=== PATIENT | male | born 1955 ===

== ENCOUNTER 2024-09-08 07:36 | Outpatient (AMB) | payer MEDICARE, MEDICAID, OTHER, SELFPAY ==
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
[2024-09-08 08:08] VITALS: BP 110/72; PULSE 70; TEMP 36.2; O2SAT 97; BMI 26.9
== END 2024-09-08 09:01 | disposition home or self-care (01) ==
DX: I10 Essential (primary) hypertension (principal); E78.00 Pure hypercholesterolemia, unspecified; M50.30 Other cervical disc degeneration, unspecified cervical region; K21.9 Gastro-esophageal reflux disease without esophagitis; I49.9 Cardiac arrhythmia, unspecified; R10.9 Unspecified abdominal pain; R51.9 Headache, unspecified; K59.00 Constipation, unspecified

== ENCOUNTER → 2024-09-08 07:36 | Outpatient (BNVA) | payer MEDICARE, MEDICAID, OTHER, SELFPAY | DX: I10 Essential (primary) hypertension (principal); E78.00 Pure hypercholesterolemia, unspecified; M50.30 Other cervical disc degeneration, unspecified cervical region; K21.9 Gastro-esophageal reflux disease without esophagitis; I49.9 Cardiac arrhythmia, unspecified; R10.9 Unspecified abdominal pain; R51.9 Headache, unspecified; K59.00 Constipation, unspecified | CPT/HCPCS: 99202 ==

== ENCOUNTER 2024-10-12 07:47 | Outpatient (REF) | payer OTHER, SELFPAY ==
--- NOTE | ~2024-10-12 | US_ITS ---
CLINICAL HISTORY: R10.9 - Unspecified abdominal pain US abdomen complete Comparison: None Findings: Pancreas is not well seen secondary to bowel gas. The aorta and inferior vena cava are normal caliber. The liver is normal in size and echotexture. There is no intrahepatic bile duct dilatation. The common duct is to mm in diameter. The gallbladder is normal. There is no sonographic Coronel sign. The right kidney is 10.8 cm in length. The left kidney is 14.0 cm in length. Renal pelvis are prominent bilaterally. The spleen is normal. No ascites. No abnormality seen in the region of umbilical hernia repair. IMPRESSION: 1. Normal complete abdominal ultrasound. This document has been electronically signed by: Zuleima Vigil MD on 10/13/2024 14:38:48
--- NOTE | 2024-10-12 08:40 | HM_ITS ---
Conclusion: 1. Patient was monitored for total period of 5 days 2. Frequent atrial fibrillation noted with 85% of time patient in atrial fibrillation with fastest heart rate of 188 beats per minute 3. At other times patient in normal sinus rhythm with average heart of 75 beats per minute 4. Rare PACs and PVCs noted 5. No significant pauses noted 6. No patient reported events MTDD
== END 2024-10-12 07:48 | disposition home or self-care (01) ==
LOC: HO.US 07:47
PROVIDERS: PCP Internal Medicine
DX: Z13.89 Encounter for screening for other disorder (principal)
CPT/HCPCS: 76700; 93242

== ENCOUNTER → 2024-10-12 07:49 | Outpatient (BNV) | payer OTHER, SELFPAY | PROVIDERS: PCP Internal Medicine; Visit Provider Radiology Diagnostic Radiology | DX: R10.9 Unspecified abdominal pain (principal) | CPT/HCPCS: 76700 ==

== ENCOUNTER → 2024-10-12 08:40 | Outpatient (BNV) | payer OTHER, SELFPAY | PROVIDERS: PCP Internal Medicine; Visit Provider Internal Medicine Cardiovascular Disease | DX: I48.91 Unspecified atrial fibrillation (principal) | CPT/HCPCS: 93244 ==

== ENCOUNTER 2024-10-12 08:56 | Outpatient (REF) | payer OTHER, SELFPAY ==
[2024-10-12 09:11] LABS: MANUAL DIFF FLAG NO
[2024-10-12 10:06] LABS: Basophils Percent Auto 0.7 % (0-2); Eosinophils Absolute Auto 0.3 X10*3/uL (0.0-0.4); Eosinophils Percent Auto 7.5 % (0-4); Hematocrit 40.2 % (42.0-52.0); Hemoglobin 13.6 g/dl (14.0-18.0); Imm Gran Abs Auto 0.01 X10*3/uL (0.00-0.03); Imm Gran Pct Auto 0.2 % (0.0-0.4); Lymphocytes Absolute Auto 1.5 X10*3/uL (1.2-4.9); Lymphocytes Percent Auto 33.1 % (20-40); Mean Corpuscular HGB Conc 33.8 g/dl (31.0-36.0); Mean Corpuscular Hemoglobin 30.3 pg (27.0-33.0); Mean Corpuscular Volume 89.5 fL (80.0-98.0); Mean Platelet Volume 10.4 fL (9.4-12.4); Monocytes Absolute Auto 0.4 X10*3/uL (0.1-1.2); Monocytes Percent Auto 9.8 % (2-11); Neutrophils Absolute Auto 2.2 x10*3/uL (2.0-8.3); Neutrophils Percent Auto 48.7 % (45-73); Platelet Count 160 X10*3/uL (160-400); Red Blood Count 4.49 X10*6/uL (4.60-5.80); Red Cell Distribution Width 13.1 % (11.0-16.0); White Blood Count 4.4 X10*3/uL (4.8-10.8)
[2024-10-12 10:09] LABS: Estimated Average Glucose 105 mg/dL; Hemoglobin A1C 124.8694 umol/L; Hemoglobin A1c % 5.3 % (<6.0); Total Hemoglobin (HGBA1C) 3632.8069 umol/L
[2024-10-12 10:35] LABS: Appearance Urine Clear; Color Urine Yellow; Glucose Urine UA Negative (Negative); Leukocyte Esterase Urine Negative (Negative); Nitrite Urine Negative (Negative); PH 7.5 (5.0-9.0); Urine Blood Negative (Negative); Urine Ketones Negative (Negative); Urine Protein Negative (Neg-Trace)
[2024-10-12 10:42] LABS: Alanine Aminotransferase 24 U/L (0-40); Albumin Level 4.1 g/dL (3.5-5.0); Alkaline Phosphatase 58 U/L (39-117); Anion Gap 9 (12-20); Aspartate Amino Transferase 23 U/L (5-37); Bilirubin Total 0.5 mg/dL (0.0-1.0); Blood Urea Nitrogen 15 mg/dL (9-16); Calcium 8.9 mg/dL (8.4-10.2); Carbon Dioxide 28 mmol/L (22-29); Chloride 110 mmol/L (96-108); Cholesterol 113 mg/dL (<200); Estimated Glomerular Filt Rate > 60; Glucose Random 101 mg/dL (60-115); HDL Cholesterol 39 mg/dL (>40); LDL Cholesterol Calculated 64 mg/dL (<100); Potassium 4.3 mmol/L (3.3-5.1); Sodium 143 mmol/L (135-145); Total Protein 6.7 g/dL (6.5-8.0); Triglycerides 50 mg/dL (<150)
[2024-10-12 10:58] LABS: TSH reflex Free T4 0.58 uIU/mL (0.32-4.0); Vitamin D 25-OH Total 39.8 ng/mL (>30)
[2024-10-12 11:04] LABS: Folate 15.2 ng/mL (> or = 4.0); Vitamin B12 764 pg/mL (200-900)
[2024-10-18 22:08] LABS: PSA, Ultra Sensitive 0.56 ng/mL
== END 2024-10-12 08:57 | disposition home or self-care (01) ==
LOC: HO.LAB 08:56
PROVIDERS: PCP Internal Medicine
DX: Z00.00 Encounter for general adult medical examination without abnormal findings (principal); E78.00 Pure hypercholesterolemia, unspecified; Z12.5 Encounter for screening for malignant neoplasm of prostate; R10.819 Abdominal tenderness, unspecified site; R00.2 Palpitations; I49.9 Cardiac arrhythmia, unspecified; Z13.1 Encounter for screening for diabetes mellitus; R10.9 Unspecified abdominal pain
CPT/HCPCS: 36415; 76700; 80053; 80061; 81003; 82306; 82607; 82746; 83036; 84153; 84443; 85025; 93242

== ENCOUNTER 2024-10-30 07:26 | Outpatient (REF) | payer OTHER, SELFPAY ==
[2024-10-30 08:06] LABS: D Dimer High Sensitivity < 150 NG/ML
== END 2024-10-30 07:27 | disposition home or self-care (01) ==
LOC: HO.LAB 07:26
PROVIDERS: PCP Internal Medicine
DX: I48.0 Paroxysmal atrial fibrillation (principal)
CPT/HCPCS: 36415; 85379

== ENCOUNTER → 2024-11-08 07:56 | Outpatient (REF) | payer OTHER, SELFPAY ==
--- NOTE | 2024-11-08 07:58 | CA_ITS ---
Transthoracic Echocardiogram Patient (Last, First, Middle): Donnell Lynne, Gender: Male Date of : 1955 Age: 68 Procedure Date: 11/08/2024 Procedure Type: Transthoracic Echocardiogram Location: OP Height: 167.64 cm Weight: 76.66 kg BSA: 1.86 m2 Heart Rate: bpm BP: 110 / 72 mmHg Deputy Sheriff Building Guard: EAMON Referring MD: Rachel Davidson PA-C Marine Services Technician: Harry Garcia MD Symptoms: I48.0 - Paroxysmal atrial fibrillation Study Quality: Adequate ECG Rhythm: Atrial Fibrillation Conclusions: - 1. Normal LV ejection fraction 55-60% 2. Normal cardiac valvular Dopplers 3. Normal RV systolic pressure 4. Mildly dilated ascending aorta 3.7 cm 5. No gross pericardial effusion Findings Left Ventricle Normal left ventricular size, thickness, and systolic function. The visually estimated ejection fraction is between 55-60%. Diastolic function is indeterminate on the basis of available data. Normal left ventricular filling pressures. Right Ventricle Normal right ventricular cavity size and systolic function. Atria The left atrium is likely dilated. Interatrial shunt cannot be excluded. The right atrium is normal in size. Aortic Valve The aortic valve was not well visualized. There is no aortic valve stenosis. There is no aortic valve regurgitation. Mitral Valve Likely normal mitral valve structure and function. There is trace mitral valve regurgitation. There is no mitral valve stenosis. Pulmonic Valve The pulmonic valve was not well visualized. Tricuspid Valve The tricuspid valve was not well visualized. There is trace tricuspid valve regurgitation. The right ventricular systolic pressure is normal. The right ventricular systolic pressure is 14 mmHg. Normal right atrial pressure. There is no evidence of pulmonary hypertension. Great Vessels All visible segments of the aorta are normal in size. The pulmonary artery was not well visualized. There is mild dilatation of the ascending aorta measuring 3.70 cm. Venous The inferior vena cava is normal in size and collapses greater than 50% with inspiration. Pericardium/Pleural There is no evidence of pericardial effusion. Prior Study Comparison No prior study available for comparison. Measurements 2D Linear Measurements IVSd: 1.08 0.6-0.9/0.6-1.0 cm LVIDd: 4.48 3.9-5.3/4.2-5.9 cm LVIDd Index: 2.41 2.4-3.2/2.2-3.1 cm/m2 LVIDs: 3.25 2.0-3.6 cm LVPWd: 1.06 0.7-1.1 cm LA Diam: 3.20 2.7-3.8/3.0-4.0 cm LAIDs Index: 1.72 1.5-2.3 cm/m2 LV Mass: 208.21 67-162/88-224 g LV Mass Index: 111.94 43-95/49-115 g/m2 LVOT Diam: 2.00 3.0+(-)1.3 cm 2D Systolic Function EF 4C: 59.40 >55% EF 2C: 54.20 >55% EF BiP: 55.90 >55% Mitral Valve MV Pk E: 0.71 MV Decel Time: 202.00 E'Lateral: 11.30 E'Medial: 7.31 E/E' Med: 9.60 E/E' Lat: 6.20 PHT: 59.00 MVA PHT: 3.73 Decel Pratt: 3.76 Aortic Valve AoV Pk Gilbert: 1.09 AoV Mn Gilbert: 0.76 AoV VTI: 0.20 AoV Pk Grad: 5.00 Aov Mn Grad: 3.00 MARIELA Cont.VTI: 2.43 LVOT LVOT Pk Gilbert: 0.82 LVOT Mn Gilbert: 0.54 LVOT VTI: 0.16 LVOT Pk Grad: 3.00 LVOT Mn Grad: 1.00 LVOT Diam: 2.00 LVOT Area: 3.14 Diastolic Function MV Pk E: 0.71 E'Medial: 7.31 E/E' Med: 9.60 E' Laterial: 11.30 E/E' Lat: 6.20 Right Ventricle TAPSE (mm): 20.80 TVS' Gilbert: 11.40 Tricuspid Valve TR Pk Gilbert: 1.69 TR Pk Grad: 11.00 RA Press: 3.00 RVSP: 14.00 Great Vessels Aorta Sinus of Valsalva: 3.63 2.0-3.[address] Ridge: 3.00 1.7-3.4 cm Ao Asc: 3.70 2.1-3.4 cm Updated in Other Vendor System with Status of Final Harry Garcia MD electronically signed on 11/08/2024 1:16:32 PM with status of Final
== END ==
LOC: HO.CARD 07:56
PROVIDERS: PCP Internal Medicine
DX: I48.0 Paroxysmal atrial fibrillation (principal)
CPT/HCPCS: 93306

== ENCOUNTER → 2024-11-08 07:58 | Outpatient (BNV) | payer OTHER, SELFPAY | PROVIDERS: PCP Internal Medicine; Visit Provider Internal Medicine Cardiovascular Disease | DX: I48.0 Paroxysmal atrial fibrillation (principal); I77.810 Thoracic aortic ectasia | CPT/HCPCS: 93306 ==

== ENCOUNTER 2024-11-15 11:58 | Outpatient (AMB) | payer OTHER, SELFPAY ==
[2024-11-15 12:26] VITALS: BP 110/60; PULSE 82; BMI 26.0
--- NOTE | 2024-11-15 12:26 | A.OFFVIS_ITS ---
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 Apparently has been told have an irregular heart rhythm in the past but not documented to have any atrial fibrillation. Recently underwent Holter that does show a high burden of atrial fibrillation. Patient himself does not have any known cardiac issues including coronary disease myocardial infarction or cardiomyopathy or in fact anything else along those lines. He states he otherwise feels fine. Does not have any symptoms like palpitations, chest pains, shortness of breath extra. He states he feels well. He is on atenolol which has apparently been long-term medications. After the recent diagnosis of atrial fibrillation, Eliquis has been added. [facility] Medical History (Updated 11/09/24 @ 08:44 by Rachel Davidson PA-C) Lipoma Surgical History History of carpal tunnel surgery History of hand surgery History of hernia surgery Family History (Updated 11/15/24 @ 12:37 by Neda Zavaleta) Mother Heart problem Father No problems noted. Other Substance use disorder Social History (Updated 11/15/24 @ 12:37 by Neda Zavaleta) Housing: Apartment Alcohol intake: never Patient Tobacco Use Status: Former Tobacco user e-Cigarette/Vaping Use: Never Used Second Hand Smoke Exposure: No service: No Current occupational status: retired Cognitive needs: Yes (cane) Hearing needs: No Vision needs: Yes (Glasses) Review of Systems Const Denies weakness ENT Denies dizziness Card Denies chest pain, Denies chest pain with activity, Denies syncope, Denies rapid heart rate, Denies pedal edema, Denies edema, Denies leg edema, Denies lightheadedness, Denies palpitations, Denies dyspnea, Denies dyspnea on exertion and Denies orthopnea Resp Denies cough, Denies dyspnea and Denies dyspnea on exertion GI Denies hematochezia and Denies change in stool character Musc Denies abnormal gait, Denies muscle cramps, Denies muscle weakness, Denies numbness, Denies radiating pain into limb and Denies tingling Neuro Denies abnormal gait, Denies dizziness, Denies syncope, Denies numbness, Denies tingling and Denies weakness Endo Denies palpitations Physical Exam Vital Signs: Last Vital Signs Pulse 82 11/15/24 12:26 BP 110/60 11/15/24 12:26 BMI result Body Mass Index 26.0 Const General: comfortable and no acute distress Orientation/consciousness: patient oriented x3 HEENT Other: Unremarkable Head: Yes normal to inspection Neck Neck: Yes normal visual inspection Chest Chest palpation & inspection: normal inspection of the chest Resp Auscultation: clear to auscultation bilaterally Cardio Palpation: normal PMI Heart sounds: S1 normal heart sound present, S2 normal heart sound present, no gallops, no murmurs and no rubs GI Palpation (GI): Soft to palpation Back/Spine/Pelvis Other: unremarkable Skin General skin exam: no rashes or lesions noted Neuro General: patient oriented x3 Extrem General: Yes normal to inspection Psych Mental Status: mental status grossly normal Office Procedures EKG Details: EKG with atrial fibrillation at a rate of 82/Min. [id number], Complete Assessment & Plan Assessment & Plan (1) Paroxysmal A-fib: Code(s): I48.0 - Paroxysmal atrial fibrillation Category: Medical Plan Cardiac studies reviewed. In the echocardiogram, LVEF is 55-60%. Left atrium thought to be probably dilated. No significant valvular findings. In the Holter monitor, atrial fibrillation noted about 85% of the time. There is evidence of rapid ventricular response -about 6.6% of the time, rate > 100/Min. Overall, possible history of paroxysmal atrial fibrillation which could be more persistent based on the high burden. Clinically, no overt symptoms. He is already on atenolol. Add digoxin. Check levels in a few weeks' time. Continue anticoagulation. We will recheck Holter in about 2-3 months after having had digoxin for a few weeks. Orders: Orders Digoxin 4 Weeks Henry Friedman MD I48.0 - Paroxysmal atrial fibrillation ECG 3 day holter monitor Today Henry Friedman MD I48.0 - Paroxysmal atrial fibrillation Medications: New digoxin 125 mcg PO DAILY 90 tabs 1RF Henry Friedman MD Changed From docusate sodium (Colace) 100 mg PO DAILY 30 caps 2RF To docusate sodium (Colace) 100 mg PO DAILY PRN Rachel Davidson PA-C Coding Level of Care Code New Pt Level 4 (05841) Complex EM visit Add On G2211 Diagnoses Paroxysmal A-fib I48.0 CPT Codes EKG - CPT: 33511-[id number], Complete ([id number])
== END 2024-11-15 13:08 | disposition home or self-care (01) ==
LOC: HO.HCS 11:59
PROVIDERS: PCP Internal Medicine; Visit Provider Internal Medicine
DX: I48.0 Paroxysmal atrial fibrillation (principal)
CPT/HCPCS: 93010; 99204; G2211

== ENCOUNTER → 2024-11-15 11:58 | Outpatient (BNVA) | payer OTHER, SELFPAY | PROVIDERS: PCP Internal Medicine; Visit Provider Internal Medicine | DX: I48.0 Paroxysmal atrial fibrillation (principal); R94.31 Abnormal electrocardiogram [ECG] [EKG] | CPT/HCPCS: 93005; 99202 ==

== ENCOUNTER → 2024-11-20 09:16 | Outpatient (REF) | payer OTHER, SELFPAY | LOC: HO.CARD 09:16 | PROVIDERS: Visit Provider Internal Medicine | DX: I48.0 Paroxysmal atrial fibrillation (principal) | CPT/HCPCS: 93242 ==

== ENCOUNTER → 2024-11-20 09:19 | Outpatient (BNV) | payer OTHER, SELFPAY | PROVIDERS: Visit Provider Internal Medicine | DX: I48.91 Unspecified atrial fibrillation (principal) | CPT/HCPCS: 93244 ==

== ENCOUNTER 2024-11-24 08:29 | Outpatient (REF) | payer OTHER, SELFPAY ==
--- NOTE | ~2024-11-24 | FL_ITS ---
EXAMINATION: XR FLUOROSCOPY UPPER GI WITH AIR CLINICAL INFORMATION: Reflux COMPARISON: None TECHNIQUE: Fluoroscopic air contrast upper GI examination was performed utilizing standard techniques with thin and thick barium and effervescent granules. Numerous spot images were obtained. FINDINGS: Lateral cine images of the oropharynx and hypopharynx demonstrate normal swallow mechanism with normal epiglottic inversion and soft palate elevation. No tracheal penetration, glottic or subglottic aspiration identified. No nasopharyngeal reflux present. A Niall-Victoriano diverticulum is present. Mild cricopharyngeal achalasia is present. Dual and single contrast images of the esophagus demonstrate a normal caliber and contour. There is a granular appearance of the esophageal mucosa, suggestive of esophagitis. No evidence of stricture, mass, or ulcerations identified. Esophageal peristalsis is mildly disorganized. A small type I hiatal hernia is present. Gastroesophageal reflux is seen up to the aortic arch. Dual contrast and single contrast images of the stomach demonstrated a normal contour. The gastric rugal folds have a thickened appearance, suggestive gastritis. No masses or ulcerations are seen. Contrast freely passed into the gastric antrum and duodenal bulb without delay. Single and air-contrast images of the duodenal bulb demonstrate no abnormality. The duodenal sweep has a normal appearance, course, and mucosal fold appearance. The imaged proximal jejunum has a normal fold pattern and caliber. FLUOROSCOPY TIME: 3 minutes 1 second Number of Spot Images: 10 Number of Cine: 13 DOSE AREA PRODUCT: 2099 uGy-m2 (microgray-meter squared) FL/FL upper GI w air IMPRESSION: 1. Lateral upper cervical esophageal diverticulum ([place]-Victoriano diverticulum). 2. Mild cricopharyngeal achalasia. 3. Granular appearance of the esophageal mucosa, suggestive of esophagitis. 4. Mild esophageal dysmotility. 5. Small type I hiatal hernia with moderate gastric esophageal reflux. 6. Thickened appearance of the gastric rugal folds, suggestive of gastritis. This procedure was performed by Richy Spangler PA-C, and supervised by Dr. Islas Electronically signed by: Todd Islas MD 11/24/2024 03:41 PM EDT
== END 2024-11-24 08:30 | disposition home or self-care (01) ==
LOC: HO.XRAY 08:29
PROVIDERS: PCP Internal Medicine
DX: K21.9 Gastro-esophageal reflux disease without esophagitis (principal)
CPT/HCPCS: 74246

== ENCOUNTER → 2024-11-24 08:31 | Outpatient (BNV) | payer OTHER, SELFPAY | PROVIDERS: PCP Internal Medicine; Visit Provider Physician Assistant Surgical | DX: K21.9 Gastro-esophageal reflux disease without esophagitis (principal) | CPT/HCPCS: 74246 ==

== ENCOUNTER 2024-12-07 13:59 | Outpatient (AMB) | payer MEDICARE, MEDICAID, SELFPAY ==
[2024-12-07 14:46] VITALS: BP 130/60; PULSE 50; TEMP 36.3; O2SAT 97; BMI 27.6
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
== END 2024-12-07 15:18 | disposition home or self-care (01) ==
LOC: HO.HMCH 13:59
DX: K22.4 Dyskinesia of esophagus (principal); I48.0 Paroxysmal atrial fibrillation; I10 Essential (primary) hypertension; E78.00 Pure hypercholesterolemia, unspecified; K21.9 Gastro-esophageal reflux disease without esophagitis; M50.30 Other cervical disc degeneration, unspecified cervical region

== ENCOUNTER → 2024-12-07 13:59 | Outpatient (BNVA) | payer OTHER, SELFPAY | DX: K22.4 Dyskinesia of esophagus (principal); I48.0 Paroxysmal atrial fibrillation; I10 Essential (primary) hypertension; E78.00 Pure hypercholesterolemia, unspecified; K21.9 Gastro-esophageal reflux disease without esophagitis; Z79.01 Long term (current) use of anticoagulants; Z79.899 Other long term (current) drug therapy | CPT/HCPCS: 99212 ==

== ENCOUNTER 2024-12-29 06:53 | Outpatient (REF) | payer MEDICARE, SELFPAY ==
--- OUTSIDE RECORDS SUMMARY | 2024-12-29 06:55 | XMS_ITS ---
Author Organization [facility] Billing Info Address [address] [place] [id number] Care Team Providers Care Top Collar Baster Name Role Phone Neil Rudolph Primary Care Provider KEIRA Karimi Unavailable [phone] Allergies No Known Allergies REASON FOR VISIT S/P EGD/SCREENING COLONOSCOPY DOS 03/21/2024 Social History Tobacco Use: Social History Observation Description Date Details (start date - stop date) Former Smoker NA - NA Tobacco Status: Question Answer Notes Patient is a former smoker Problems Problem Type SNOMED Code ICD Code Onset Dates Problem Status W/U Status Risk Notes Problem 270652524 Gastroesophageal reflux disease with esophagitis without hemorrhage (K21.00) Active confirmed Problem 241189841 Irregular Z line of esophagus (K22.9) Active confirmed Problem 80441202 Hiatal hernia (K44.9) Active confirmed Problem 05936308 Benign fundic gl and polyps of stomach (D13.1) Active confirmed Problem 0198438 Antral gastritis (K29.50) Active confirmed Problem 79050978 Duodenitis (K29.80) Active confirmed Problem 962506906 Hyperplastic rajan yp of cecum (K63.5) Active confirmed Problem 5349499171 Lipoma of colon (D17.5) Active confirmed Problem 3675139702124 Adenomatous rect al polyp (D12.8) Active confirmed Problem 318420048 Colon, diverticulosis (K57.30) Active confirmed Problem 33505454 Gastric intestin al metaplasia (K31.A0) Active confirmed Vital Signs Height 68 in 04/05/2024 Weight 169 lbs 04/05/2024 BMI 25.69 kg/m2 04/05/2024 Blood pressure systolic 134 mm Hg 04/05/20 24 Blood pressure diastolic 74 mm Hg 024 Temperature 98.0 degrees Fahrenheit 04/05/20 24 Heart Rate 75 /min 04/05/2024 Respiratory Rate 16 /min 04/05/2024 Encounters Encounter Location Date Provider Diagnosis [id number] [facility] [address] [place] [address] 04/05/2024 KEIRA NOLAND Gastroesophageal reflux disease with esophagitis without hemorrhage K21.00 ; Irregular Z line of esophagus K22.9 ; Hiatal hernia K44.9 ; Benign fundic gland polyps of stomach D13.1 ; Antral gastritis K29.50 ; Duodenitis K29.80 ; Hyperplastic polyp of cecum K63.5 ; Lipoma of colon D17.5 ; Adenomatous rectal polyp D12.8 ; Colon, diverticulosis K57.30 ; Gastric intestinal metaplasia K31.A0 ; Dietary counseling and surveillance Z71.3 and Overweight (BMI 25.0-29.9) E66.3 Assessments Encounter Date Diagnosis (ICD Code) Assessment Notes Treatment Notes Treatment Clinical Notes Section Notes 04/05/2024 Gastroesophageal reflux disease with esophagitis without hemorrhage (ICD-10 - K21.00) Reflux esophagitis Irregular Z-line Hiatal hernia 35/38 cm Gastric fundic polyps Antral gastritis Duodenitis Cecal hyperplastic polyp Cecal lipoma, subcentimeter Colonic diverticulosi s Rectal tubular adenomatous polyp 04/05/2024 Irregular Z line of esophagus (ICD-10 - K22.9) Reflux esophagitis Irregular Z-line Hiatal hernia 35/38 cm Gastric fundic polyps Antral gastritis Duodenitis Cecal hyperplastic polyp Cecal lipoma, subcentimeter Colonic diverticulosi s Rectal tubular adenomatous polyp 04/05/2024 Hiatal hernia (ICD-10 - K44.9) Reflux esophagitis Irregular Z-line Hiatal hernia 35/38 cm Gastric fundic polyps Antral gastritis Duodenitis Cecal hyperplastic polyp Cecal lipoma, subcentimeter Colonic diverticulosi s Rectal tubular adenomatous polyp 04/05/2024 Benign fundic gland polyps of stomach (ICD-10 - D13.1) Reflux esophagitis Irregular Z-line Hiatal hernia 35/38 cm Gastric fundic polyps Antral gastritis Duodenitis Cecal hyperplastic polyp Cecal lipoma, subcentimeter Colonic diverticulosi s Rectal tubular adenomatous polyp 04/05/2024 Antral gastritis (ICD-10 - K29.50) Reflux esophagitis Irregular Z-line Hiatal hernia 35/38 cm Gastric fundic polyps Antral gastritis Duodenitis Cecal hyperplastic polyp Cecal lipoma, subcentimeter Colonic diverticulosi s Rectal tubular adenomatous polyp 04/05/2024 Duodenitis (ICD-10 - K29.80) Reflux esophagitis Irregular Z-line Hiatal hernia 35/38 cm Gastric fundic polyps Antral gastritis Duodenitis Cecal hyperplastic polyp Cecal lipoma, subcentimeter Colonic diverticulosi s Rectal tubular adenomatous polyp 04/05/2024 Hyperplastic polyp of cecum (ICD-10 - K63.5) Reflux esophagitis Irregular Z-line Hiatal hernia 35/38 cm Gastric fundic polyps Antral gastritis Duodenitis Cecal hyperplastic polyp Cecal lipoma, subcentimeter Colonic diverticulosi s Rectal tubular adenomatous polyp 04/05/2024 Lipoma of colon (ICD-10 - D17.5) Reflux esophagitis Irregular Z-line Hiatal hernia 35/38 cm Gastric fundic polyps Antral gastritis Duodenitis Cecal hyperplastic polyp Cecal lipoma, subcentimeter Colonic diverticulosi s Rectal tubular adenomatous polyp 04/05/2024 Adenomatous rectal polyp (ICD-10 - D12.8) Colonoscopy in 3 years Reflux esophagitis Irregular Z-line Hiatal hernia 35/38 cm Gastric fundic polyps Antral gastritis Duodenitis Cecal hyperplastic polyp Cecal lipoma, subcentimeter Colonic diverticulosi s Rectal tubular adenomatous polyp 04/05/2024 Colon, diverticulosis (ICD-10 - K57.30) Reflux esophagitis Irregular Z-line Hiatal hernia 35/38 cm Gastric fundic polyps Antral gastritis Duodenitis Cecal hyperplastic polyp Cecal lipoma, subcentimeter Colonic diverticulosi s Rectal tubular adenomatous polyp 04/05/2024 Gastric intestinal metaplasia (ICD-10 - K31.A0) EGD in 3 years Reflux esophagitis Irregular Z-line Hiatal hernia 35/38 cm Gastric fundic polyps Antral gastritis Duodenitis Cecal hyperplastic polyp Cecal lipoma, subcentimeter Colonic diverticulosi s Rectal tubular adenomatous polyp 04/05/2024 Dietary counseling and surveillance (ICD-10 - Z71.3) Encouraged balance nutrition and regular exercise. Reflux esophagitis Irregular Z-line Hiatal hernia 35/38 cm Gastric fundic polyps Antral gastritis Duodenitis Cecal hyperplastic polyp Cecal lipoma, subcentimeter Colonic diverticulosi s Rectal tubular adenomatous polyp 04/05/2024 Overweight (BMI 25.0-29.9) (ICD-10 - E66.3) Encouraged balance nutrition and regular exercise. Reflux esophagitis Irregular Z-line Hiatal hernia 35/38 cm Gastric fundic polyps Antral gastritis Duodenitis Cecal hyperplastic polyp Cecal lipoma, subcentimeter Colonic diverticulosi s Rectal tubular adenomatous polyp 04/05/2024 Other Preventing Falls: Care Instructions material was published, Body Mass Index: Care Instructions material was published, Learning About High Blood Pressure material was published All of the diagnoses were explained. All of the treatment options were discussed. Adverse effects were disclosed. Opportunity was given to ask questions and questions were answered. I advised to call my office if symptoms do not get better, if symptoms recur, or if new symptoms occur. Patient was advised and educated to follow the recommendations made. Adherence and compliance is urged. Failure to comply may result in untoward outcomes. If patient has some issues, problems and difficulties which may potentially lead to noncompliance, patient was advised to contact this office by phone or e-mail. Patient understood and agreed. For all nongastroenterologica l symptoms/problems patient was advised to consult and seek help from primary care physician to assure more comprehensive and organized approach to patient care Reflux esophagitis Irregular Z-line Hiatal hernia 35/38 cm Gastric fundic polyps Antral gastritis Duodenitis Cecal hyperplastic polyp Cecal lipoma, subcentimeter Colonic diverticulosi s Rectal tubular adenomatous polyp Plan Of Treatment Treatment Notes Assessment Notes Adenomatous rectal polyp Colonoscopy in 3 years Gastric intestinal metaplasia EGD in 3 y ears Dietary counseling and surveillance Enco uraged balance nutrition and regular exercise. Overweight (BMI 25.0-29.9) Encouraged ba karolyn nutrition and regular exercise. Other Preventing Falls: Ca re Instructions material was published, Body Mass Index: Care Instructions material was published, Learning About High Blood Pressure material was published Next Appt Details Follow Up: prn, Reason: Progress Notes * Gita BONILLAOB:1955 ([age] yo M)Acc No.[id number]:04/05/2024 PROGRESS NOTE Patient:?Donnell BONILLA Provider:?KEIRA NOLAND MD :1955???Age:68 Y???Sex:Male Elan e:04/05/2024 ?[facility]#:[id number] [id number] Pcp:Neil Rudolph Subjective: * Chief Complaints: * ???S/P EGD/SCREENING COLONOS COPY DOS 03/21/2024 * HPI: ???Depression Screening:?PHQ-2 (2015 Edition)?Little interest or pleasure in doing things??Not at all,?Feeling down, depressed, or hopeless??Not at all,?Total Score?0.?First Point of Contact Screening:?Do any of the following apply to you??New rash or open sores?No,?Fever and/or chills in the past 7 days?No,?Cough?No,?Muscle or body aches (other than from an injury)?No,?Sore throat?No,?In the past 3 weeks, have you or a close contact traveled outside the [place] and you are now ill??No,?OFFICE USE (If universal masking is not in place, provide patients age 2 years and older with a facemask to wear over their mouth and nose while in the practice.):?Patient answered no to all questions OR only answered yes to question 1,?No further action needed?04/05/2024.? 4PROGRESS NOTE:? KEIRA NOLAND MD ?68-year-old gentleman. He came to the office for screening for cancer of the colon.? He had colonoscopy done about 10 years ago.? He recalled that it was normal.? He has been having heartburn.? He does not complain of any difficulty in swallowing, pain during swallowing, nausea, vomiting, chest pain, rectal bleeding, black tarry stool, diarrhea, constipation.? He has been having abdominal pain but this is due to the recent surgery he had.? He had umbilical herniorrhaphy.? Patient had follow- up office visit with us surgeon, Dr. Jostin aquino.? He eats his dinner around 3:30 PM. He goes to bed between 830 and 10 PM. 04/05/2024 Reflux esophagitisIrregular Z-lineHiatal hernia 35/38 cmGastric fundic polypsAntral gastritisDuodenitisCecal hyperplastic polypCecal lipoma, subcentimeterColonic diverticulosisRectal tubular adenomatous [id number] man. He was evaluated for heartburn and screening for cancer of the colon. EGD and colonoscopy were done on 03/21/2024. Patient was found to have irregular Z-line, reflux esophagitis, hiatal hernia 35/38 cm, gastric fundic polyps, antral gastritis, duodenitis, cecal polyp, subcentimeter cecal lipoma, colonic diverticulosis, and rectal polyp.Duodenal biopsies were unremarkable. Gastric biopsy showed chronic inactive mild gastritis with intestinal metaplasia. There was no evidence of Helicobacter pylori infection. Esophageal biopsy showed cardiofundic mucosa. Distal esophageal biopsy was mislabeled as rectal polyp. It consisted of a squamocolumnar junction tissue with features most consistent with gastroesophageal junction. Cecal polyp was hyperplastic. Rectal polyp was tubular adenomatous. * ROS:?Review of 14 systems was performed. Patient does not have any symptoms except what has been mentioned in history of present illness Review of 14 systems was performed. Patient does not have any symptoms except what has been mentioned in history of present illness. * Medical History:?? * Surgical History:?carpal chaz celestina release bilateral trigger finger August 2022excision of lipoma Dr. Frankel 09/07/2023obotic incarcerated anterior abdominal wall hernia repair Ventralight ST mesh (15 x 10 cm mesh, hernia defect 3 cm) Dr. Frankel 12/20/2023 * Hospitalization/Major Diagno stic Procedure:?see above for reference * Family History:?Mother: grant thakur, diagnosed with Diabetes, Heart Attack.?Father: .? Denies family history of hypertension, bleeding disorder, dyslipidemia, liver or kidney disease. * Social History:?Alcohol Use? Patient?uses alcohol.?Tobacco Status?Patient is?a former smoker,?Quit in:?2006.? * Medications:? * Allergies:?N.K.A.no[Allergie s Verified] Objective: * Vitals:?Ht: 68 in, Ht-cm: 17 2.72 cm, Wt: 169 lbs, Wt-k.66 kg, BMI:25.69, Weight Change: 0.6 lbs, Body Surface Area: 1.92, BP:134/74, Temp:98.0F, HR:75, Respiratory Rate:16. * ???Past Orders: ???Procedure:COLONOSCOPY, SC REENING, INDIVIDUAL W/OUT HIGH RISK (G0121) (Order Date - 12/30/2023) (Performed Date - 03/21/2024) * Examination: ???General Examination: ?Constitutional:? alert and oriented, comfortable, interacting appropriately.?Derm/Integumentary:?unremarkable.?HEENT:?Head - NC/AT, hearing is grossly normal, PERRL, EOMI bilaterally.?Neck:? supple, no JVD.?Respiratory:? clear to auscultation bilaterally, no wheezes/rhonchi/rales.?Heart:? regular rate and rhythm, normal S1S2, no murmurs, click or rubs.?Chest:? normal shape and expansion, symmetrical.?Gastrointestinal:? soft, non-tender, no organomegaly, bowel sounds are normal.?Musculoskeletal:? normal, Negative for:, edema, varicose veins, stasis dermatitis, Full ROM all joint.?Neurology:? alert and oriented x 3, normal sensation and strength.? Assessment: * Assessment: 1.?Gastroesophageal reflux d isease with esophagitis without hemorrhage - K21.00 (Primary)?2.?Irregular Z line of esophagus - K22.9?3.?Hiatal hernia - K44.9?4.?Benign fundic gland polyps of stomach - D13.1?5.?Antral gastritis - K29.50?6.?Duodenitis - K29.80?7.?Hyperplastic polyp of cecum - K63.5?8.?Lipoma of colon - D17.5?9.?Adenomatous rectal polyp - D12.8?10.?Colon, diverticulosis - K57.30?11.?Gastric intestinal metaplasia - K31.A0?12.?Dietary counseling and surveillance - Z71.3 13.?Overweight (BMI 25.0-29.9) - E66.3? Reflux esophagitis Irregular Z-line Hiatal hernia 35/38 cm Gastric fundic polyps Antral gastritis Duodenitis Cecal hyperplastic polyp Cecal lipoma, subcentimeter Colonic diverticulosis Rectal tubular adenomatous polyp. Plan: * Treatment: 2.?Gastric intestinal metapl fariba? Notes: EGD in 3 years?? 3.?Dietary counseling and yoon rveillance? Notes: Encouraged balance nutrition and regular exercise.?? 4.?Overweight (BMI 25.0-29.9 )? Notes: Encouraged balance nutrition and regular exercise.?? 5.?Others? Notes: Preventing Falls: Care Instructions material was published, Body Mass Index: Care Instructions material was published, Learning About High Blood Pressure material was published?? Clinical Notes: All of the diagnoses were explained. All of the treatment options were discussed. Adverse effects were disclosed. Opportunity was given to ask questions and questions were answered. I advised to call my office if symptoms do not get better, if symptoms recur, or if new symptoms occur. Patient was advised and educated to follow the recommendations made. Adherence and compliance is urged. Failure to comply may result in untoward outcomes. If patient has some issues, problems and difficulties which may potentially lead to noncompliance, patient was advised to contact this office by phone or e-mail. Patient understood and agreed. For all nongastroenterological symptoms/problems patient was advised to consult and seek help from primary care physician to assure more comprehensive and organized approach to patient care?? * Procedure Codes:? * Preventive Medicine:? ??[place] [facility] (Patient Assessment Form):?Fall Risk Assessment?Date Screening Completed:?04/05/2024,?Increased Fall Risk factors:?No fall risk factors,?History Falls in Past Year:?No falls in the past year.?Colorectal Cancer Screening (45- 75 y/o)?Colonoscopy Date (Every 10 years):?03/21/2024.?Depression Screening?PHQ 2 Smart Form:?Negative for Depression.? ??Quality Measures:?Fall Risk Assessment:?Date of Screening Completed:?04/05/2024,?Increased Fall Risk Factors:?No fall risk factors ,?History Falls in Past Year:?No falls in the past year.?Colorectal Cancer Screening:?Colonoscopy?03/21/2024.?High Blood Pressure screening and follow up:?Intervention Order?Yes,?Follow Up for BP reading with PCP/Alternative Provider?Follow-up 2 weeks (finding) ,?Lifestyle Recommendation?Lifestyle education regarding hypertension (procedure) .?Weight Assessment?Above Normal BMI Follow-Up?Giving encouragement to exercise.? * Follow Up:?prn * Care Plan Details* * Sign off status: Completed true * Provider:?KEIRA NOLAND MD Date:? Generated for Sara huerta/Greta/Holdensmitting on:?12/29/2024 06:55 AM EDT History and Physical Notes * HPI (History of Present Illness) Category Sub-Category Detail Notes Category Not es Depression Screening PHQ-2 (2015 Edition) Little interest or pleasure in doing things?: Not at all Feeling down, depressed, or hopeless?: N ot at all Total Score: 0 First Point of Contact Screening Do any of the following apply to you? New rash or open sores: No 4PROGRESS NOTE: KEIRA NOLAND MD 68-year-old gentleman. He came to the office for screening for cancer of the colon. He had colonoscopy done about 10 years ago. He recalled that it was normal. He has been having heartburn. He does not complain of any difficulty in swallowing, pain during swallowing, nausea, vomiting, chest pain, rectal bleeding, black tarry stool, diarrhea, constipation. He has been having abdominal pain but this is due to the recent surgery he had. He had umbilical herniorrhaphy. Patient had follow-up office visit with us surgeon, Dr. Frankel already. He eats his dinner around 3:30 PM. He goes to bed between 830 and 10 PM. 04/05/2024 Reflux esophagitisIrregular Z-lineHiatal hernia 35/38 cmGastric fundic polypsAntral gastritisDuodenitisCecal hyperplastic polypCecal lipoma, subcentimeterColonic diverticulosisRectal tubular adenomatous [id number] man. He was evaluated for heartburn and screening for cancer of the colon. EGD and colonoscopy were done on 03/21/2024. Patient was found to have irregular Z-line, reflux esophagitis, hiatal hernia 35/38 cm, gastric fundic polyps, antral gastritis, duodenitis, cecal polyp, subcentimeter cecal lipoma, colonic diverticulosis, and rectal polyp.Duodenal biopsies were unremarkable. Gastric biopsy showed chronic inactive mild gastritis with intestinal metaplasia. There was no evidence of Helicobacter pylori infection. Esophageal biopsy showed cardiofundic mucosa. Distal esophageal biopsy was mislabeled as rectal polyp. It consisted of a squamocolumnar junction tissue with features most consistent with gastroesophageal junction. Cecal polyp was hyperplastic. Rectal polyp was tubular adenomatous. Fever and/or chills in the past 7 days: No Cough: No Muscle or body aches (other than from an injury): No Sore throat: No In the past 3 weeks, have yo u or a close contact traveled outside the [place] and you are now ill? : No OFFICE USE (If universal [employer] pema is not in place, provide patients age 2 years and older with a facemask to wear over their mouth and nose while in the practice.):: Patient answered no to all questions OR only answered yes to question 1 ?No further action needed : 04/05/2024 Examination Category Sub-Category Detail Notes Category Not es General Examination HEENT: Head - NC/AT , hearing is grossly normal, PERRL, EOMI bilaterally Neck: supple, no JVD Heart: regular rate and rhy thm, normal S1S2, no murmurs, click or rubs Respiratory: clear to auscultatio n bilaterally, no wheezes/rhonchi/rales Gastrointestinal: soft, non-tender, no organomegaly, bowel sounds are normal Constitutional: alert and oriented, comfortable, interacting appropriately Derm/Integumentary: unremarkable Neurology: alert and oriented x 3, normal sensation and strength Chest: normal shape and exp ansion, symmetrical Musculoskeletal: normal, Negative for :, edema, varicose veins, stasis dermatitis, Full ROM all joint
--- OUTSIDE RECORDS SUMMARY | 2024-12-29 06:55 | XMS_ITS | Patient Health Record ---
Author Organization [facility] Billing Info Address [address] [place], [place] [address] [address] Care Team Providers Care Production Line Technician Name Role Phone Neil Rudolph Primary Care Provider Unavailab KEIRA Kim Unavailable [phone] KM FRANKEL Unavailable [phone] OZ ROBINS Unavailable [phone] Allergies No Known Allergies Reason For Referral Reason Follow up Diagnosis 1 Incarcerated umbilic al hernia (K42.0) Diagnosis 2 Umbilical hernia wit hout obstruction and without gangrene (K42.9) Referral Organization [id number] [facility] Referring Provider First Name KM Referring Provider Last Name URSZULA Referring Provider Speciality Surgery Referred Provider Neil Rudolph Referred Provider Specialty Family Pract ice General Notes RODRI DOAN 04:57:38 PM > Good day, reed bailey. has an upcoming Appointment for 01/25/[address] Frankel & Script is Required and last office notes attached. Please send to fax# . Thank you, RODRI DOAN 01/18/2024 10:04:42 AM > Good dayreed. has an upcoming Appointment for 01/25/[address] Frankel & Script is Required and last office notes attached. Please send to fax# . Thank you, RODRI DOAN 01/21/2024 04:02:37 PM > Good day, reed pat. has an upcoming Appointment for 01/25/[address] Frankel & Script is Required and last office notes attached. Please send to fax# . Thank you, RODRI DOAN 01/24/2024 03:46:39 PM > reed Willis has an upcoming Appointment for 01/25/[address] Frankel & Script is Required and last office notes attached. Please send to fax# . Thank you Referral Priority Stat Referral Appointment Date 01/25/2024 Reason Follow up Diagnosis 1 Umbilical hernia wit hout obstruction and without gangrene (K42.9) Diagnosis 2 Irreducible umbilica l hernia (K42.0) Referring Provider First Name Neil Referring Provider Last Name Ronni Referring Provider Speciality Family Pra ctice Referred Organization [id number] [facility] Referred Provider KM FRANKEL Referred Address [address] [facility], [address],[place], [id number], General Notes RODRI DOAN 10/2023 03:56:53 PM > Referral Priority Routine Reason Follow up Diagnosis 1 Gastroesophageal ref lux disease without esophagitis (K21.9) Diagnosis 2 Heartburn (R12) Referral Organization [id number] [facility] Referring Provider First Name KEIRA Referring Provider Last Name LUDIN Referring Provider Speciality Gastroente rology Referred Provider Neil Rudolph Referred Provider Specialty Family Pract ice General Notes RODRI DOAN 01:22:31 PM > Good reed goss has an upcoming Appointment for 04/05/24 and Script is Required & last office notes attached. Our Dr's info Keira Cash [address] [place] [address] and Please send fax to . Thank you, RODRI DOAN 03/28/2024 10:04:44 AM > Good reed goss has an upcoming Appointment for 04/05/24 and Script is Required & last office notes attached. Our Dr's info Keira Cash [address] [place] [address] and Please send fax to . Thank you Referral Priority Stat Referral Appointment Date 04/05/2024 Reason Follow up Diagnosis 1 Heartburn symptom (R 12) Diagnosis 2 Gastroesophageal ref lux disease without esophagitis (K21.9) Referring Provider First Name Neil Referring Provider Last Name Ronni Referring Provider Speciality Family Pra ctice Referred Organization [id number] [facility] Referred Provider KEIRA CASH Referred Address [address],[place], [place],[address],[place] General Notes RODRI DOAN 12/2023 02:41:50 PM > Referral Priority Routine Reason Follow up Diagnosis 1 Incarcerated umbilic al hernia (K42.0) Referral Organization [id number] [facility] Referring Provider First Name KM Referring Provider Last Name URSZULA Referring Provider Speciality Surgery Referred Provider Neil Rudolph Referred Provider Specialty General Prac nitesh General Notes CASEY CASANOVA 08/08/2024 09:48:52 AM > Patient is scheduled to follow up on 10/10/24, please send updated referral, thank you! Referral Priority Routine Medications Medication SIG (Take, Route, Frequency, Duration) Notes Start Date End Date Status Bisoprolol Fumarate 5 MG 1 tablet Orally Once a day for 30 day(s) Active Acetaminophen 325 MG 1 tablet as needed Orally every 4 hrs Active Baclofen 50 MCG/ML as directed Intrathecal Active Ranitidine 75 Active Baby Aspirin Active Pantoprazole Sodium 20 MG 1 tablet Orall y Once a day for 30 day(s) Active Suprep Bowel Prep Kit 17.5-3.13-1.6 GM/177ML 17.5-3.13-1.6 GM/177ML Orally As directed for 2 day(s) 03/15/2024 Not-Taking Atorvastatin Calcium 20 MG 1 tablet Orally Once a day for 30 day(s) Active Gabapentin 600 MG 1 tablet Orally Once a day for 30 day(s) Active Aspercreme Lidocaine 4 % as directed Externally Active Suprep Bowel Prep Kit 17.5-3.13-1.6 GM/177ML 17.5-3.13-1.6 GM/177ML Orally As directed for 2 day(s) 12/30/2023 Not-Taking Social History Tobacco Use: Social History Observation Description Date Details (start date - stop date) Former Smoker NA - NA Tobacco Status: Question Answer Notes Patient is a former smoker Problems Problem Type SNOMED Code ICD Code Onset Dates Problem Status W/U Status Risk Notes Problem 81878762 Heartburn (R12) Active confirmed Problem 89468947 Hiatal hernia (K44.9) Active confirmed Problem 8150881 Antral gastritis (K29.50) Active confirmed Problem 5626080 Umbilical hernia without obstruction and without gangrene (K42.9) Active confirmed Problem 850597259 Colon, diverticulosis (K57.30) Active confirmed Problem 73032692 Duodenitis (K29.80) Active confirmed Problem 698440529 Screening for malignant neoplasm of colon (Z12.11) Active confirmed Problem 9625634120 Lipoma of colon (D17.5) Active confirmed Problem 495678497 Irregular Z line of esophagus (K22.9) Active confirmed Problem 65052734 Benign fundic gl and polyps of stomach (D13.1) Active confirmed Problem 2898242160856 Adenomatous rect al polyp (D12.8) Active confirmed Problem 778086819 Hyperplastic rajan yp of cecum (K63.5) Active confirmed Problem 304252419 Gastroesophageal reflux disease with esophagitis without hemorrhage (K21.00) Active confirmed Problem 43830739 Gastric intestin al metaplasia (K31.A0) Active confirmed Vital Signs Heart Rate 75 /min 04/05/2024 Temperature 98.0 degrees Fahrenheit 04/05/2024 Respiratory Rate 16 /min 04/05/2024 Blood pressure diastolic 74 mm Hg 04/05/2024 Height 68 in 04/05/2024 Blood pressure systolic 134 mm Hg 04/05/2024 Weight 169 lbs 04/05/2024 BMI 25.69 kg/m2 04/05/2024 Procedures Procedure Date Ordered Date Performed Result Body Sit e COLONOSCOPY, SCREENING, STACY VIDUAL W/OUT HIGH RISK (G0121) 12/30/2023 03/21/2024 N/A EGD BIOPSY SINGLE/MULTIPLE (51684) 12/30/2023 03/21/2024 N /A Encounters Encounter Location Date Provider Diagnosis [id number] [facility] [address] [facility] [address] [place] [address] 03/15/2024 KEIRA CASH [id number] [facility] [address] [place], [place] [id number] 04/04/2024 KM FRANKEL Incarcerated umbilic al hernia K42.0 ; Essential hypertension I10 ; Dyslipidemia E78.5 ; Lipoma of anterior chest wall D17.1 ; Dietary counseling and surveillance Z71.3 ; Overweight (BMI 25.0-29.9) E66.3 ; Gastroesophageal reflux disease without esophagitis K21.9 ; Radiculopathy, lumbar region M54.16 ; Other chronic pain G89.29 ; Neck pain M54.2 and History of carpal tunnel release Z98.890 [id number] [facility] [address] [place] [address] [address] [place] [address] 04/05/2024 MOHAMMAD ANWER Gastroesophageal reflux disease with esophagitis without hemorrhage [...] surveillance Z71.3 and Overweight (BMI 25.0-29.9) E66.3 [id number] [facility] [address] [place], [place] [id number] 01/11/2024 KM FRANKEL Lipoma of anterior chest wall D17.1 ; Incarcerated umbilical hernia K42.0 ; Essential hypertension I10 ; Dyslipidemia E78.5 ; Gastroesophageal reflux disease without esophagitis K21.9 ; Radiculopathy, lumbar region M54.16 ; Other chronic pain G89.29 ; Neck pain M54.2 ; History of carpal tunnel release Z98.890 ; Overweight (BMI 25.0-29.9) E66.3 and Dietary counseling and surveillance Z71.3 [id number] [facility] [address] [place], [place] [id number] 01/25/2024 KM FRANKEL Lipoma of anterior chest wall D17.1 ; Incarcerated umbilical hernia K42.0 ; Essential hypertension I10 ; Dyslipidemia E78.5 ; Gastroesophageal reflux disease without esophagitis K21.9 ; Radiculopathy, lumbar region M54.16 ; Other chronic pain G89.29 ; Neck pain M54.2 ; Dietary counseling and surveillance Z71.3 ; Overweight (BMI 25.0-29.9) E66.3 and History of carpal tunnel release Z98.890 [id number] [facility] [address] [place] [address] 12/30/2023 KEIRA CASH Heartburn R12 and Screening for malignant neoplasm of colon Z12.11 [id number] [facility] [address] [place] [address] 03/21/2024 KEIRA CASH Assessments Encounter Date Diagnosis (ICD Code) Assessment Notes Treatment Notes Treatment Clinical Notes Section Notes 12/30/2023 Heartburn (ICD-10 - R12) 12/30/2023 Screening for malignant neoplasm of colon (ICD-10 - Z12.11) 01/11/2024 Lipoma of anterior chest wall (ICD-10 - D17.1) Patient at this excised few months ago. Incisions completely healed. 01/25/2024 Lipoma of anterior chest wall (ICD-10 - D17.1) Patient is status post excision of right upper lateral chest wall lipoma. Incisions completely healed. There is no pain. 01/25/2024 Incarcerated umbilical hernia (ICD-10 - K42.0) 68-year-old male status post incarcerated robotic ventral hernia repair with Ventralex ST mesh, 3 cm hernia. Patient is doing well. Continue diet and activity as tolerated. No lifting over 20 pounds for another 2 weeks or so. Patient to follow-up in about 4-6 weeks.Call with questions or concerns. Continue high-fiber diet and plenty of fluid intake 04/04/2024 Incarcerated umbilical hernia (ICD-10 - K42.0) 68-year-old male with undergone robotic incarcerated umbilical hernia repair with Ventralight ST mesh in November 2023. Patient reports that he is doing well. No recurrence of hernia on exam. Recommend continue activity as tolerated. Follow-up in 6 months for reevaluation. 04/04/2024 Essential hypertension (ICD-10 - I10) Continue bisoprolol 5 mg p.o. daily 04/05/2024 Gastroesophageal reflux disease with esophagitis without [...] Colonic diverticulosi s Rectal tubular adenomatous polyp 04/04/2024 Dyslipidemia (ICD-10 - E78.5) Continue atorvastatin 20 mg p.o. daily 01/25/2024 Essential hypertension (ICD-10 - I10) Blood pressure is controlled. ContinueBisoprolo l 5 mg p.o. daily 01/11/2024 Incarcerated umbilical hernia (ICD-10 - K42.0) 68-year-old male status post robotic incarcerated intra-abdominal hernia repair with Ventralight ST mesh, hernia defect of about 3 cm. This was on 12/19/2023. Patient is doing well. Continue diet and activity as tried. Patient reports no significant pain. Except for mild incisional pain. Recommend patient continue taking Tylenol or Advil or Aleve for pain as needed. He is tolerating regular diet. No lifting over 20 pounds. Okay to be in pool or in bath tub. Follow-up in 2 weeks 01/11/2024 Essential hypertension (ICD-10 - I10) Continue antihypertensives as per home dosing.Bisoprolol 5 mg p.o. daily 01/25/2024 Dyslipidemia (ICD-10 - E78.5) Continue to check LFTs and liver function test. Patient is onAtorvastatin 20 mg p.o. daily 04/05/2024 Benign fundic gland polyps of stomach (ICD-10 - D13.1) Reflux esophagitis Irregular Z-line Hiatal hernia 35/38 cm Gastric fundic polyps Antral gastritis Duodenitis Cecal hyperplastic polyp Cecal lipoma, subcentimeter Colonic diverticulosi s Rectal tubular adenomatous polyp 04/04/2024 Lipoma of anterior chest wall (ICD-10 - D17.1) Patient status post excision of lipoma. Incisions healed. There is no recurrence on exam. 04/04/2024 Dietary counseling and surveillance (ICD-10 - Z71.3) Encouraged balance nutrition and regular exercise. 04/05/2024 Antral gastritis (ICD-10 - K29.50) Reflux esophagitis Irregular Z-line Hiatal hernia 35/38 cm Gastric fundic polyps Antral gastritis Duodenitis Cecal hyperplastic polyp Cecal lipoma, subcentimeter Colonic diverticulosi s Rectal tubular adenomatous polyp 01/25/2024 Gastroesophageal reflux disease without esophagitis (ICD-10 - K21.9) Patient is on Protonix 20 g p.o. daily, Zantac 75 milligrams p.o. daily 01/11/2024 Dyslipidemia (ICD-10 - E78.5) Continue atorvastatin 20 minutes p.o. daily 01/11/2024 Gastroesophageal reflux disease without esophagitis (ICD-10 - K21.9) Continue Zantac 75 mg milligrams p.o. daily, Protonix 20 mg p.o. daily 01/25/2024 Radiculopathy, lumbar region (ICD-10 - M54.16) Continue Tylenol 325 mg p.o. daily, Baclofen, gabapentin 600 minutes p.o. daily 04/05/2024 Duodenitis (ICD-10 - K29.80) Reflux esophagitis Irregular Z-line Hiatal hernia 35/38 cm Gastric fundic polyps Antral gastritis Duodenitis Cecal hyperplastic polyp Cecal lipoma, subcentimeter Colonic diverticulosi s Rectal tubular adenomatous polyp 04/04/2024 Overweight (BMI 25.0-29.9) (ICD-10 - E66.3) Encouraged balance nutrition and regular exercise. 04/05/2024 Hyperplastic polyp of cecum (ICD-10 - K63.5) Reflux esophagitis Irregular Z-line Hiatal hernia 35/38 cm Gastric fundic polyps Antral gastritis Duodenitis Cecal hyperplastic polyp Cecal lipoma, subcentimeter Colonic diverticulosi s Rectal tubular adenomatous polyp 04/04/2024 Gastroesophageal reflux disease without esophagitis (ICD-10 - K21.9) Patient to continue pantoprazole 20 g p.o. daily and Zantac 75 mg p.o. daily 01/25/2024 Other chronic pain (ICD-10 - G89.29) As above continue pain control 01/11/2024 Radiculopathy, lumbar region (ICD-10 - M54.16) Continue [id number] treatments, Aspercreme 4%Application as needed 01/11/2024 Other chronic pain (ICD-10 - G89.29) As above continue current treatment plan. Patient does report that he is also on gabapentin 600 minutes p.o. 3 times daily 01/25/2024 Neck pain (ICD-10 - M54.2) As above continue current treatment plan 04/04/2024 Radiculopathy, lumbar region (ICD-10 - M54.16) Patient to continue gabapentin 600 minutes p.o. daily 04/05/2024 Lipoma of colon (ICD-10 - D17.5) [...] Colonic diverticulosi s Rectal tubular adenomatous polyp 01/25/2024 Dietary counseling and surveillance (ICD-10 - Z71.3) Encouraged balance nutrition and regular exercise. 04/04/2024 Other chronic pain (ICD-10 - G89.29) Continue gabapentin 01/11/2024 Neck pain (ICD-10 - M54.2) As above continue current treatment plan 01/11/2024 History of carpal tunnel release (ICD-10 - Z98.890) Status post carpal release surgeries. 04/04/2024 Neck pain (ICD-10 - M54.2) Continue current treatment plan and gabapentin 01/25/2024 Overweight (BMI 25.0-29.9) (ICD-10 - E66.3) Encouraged balance nutrition and regular exercise. 04/05/2024 Colon, diverticulosis (ICD-10 - K57.30) Reflux [...] Colonic diverticulosi s Rectal tubular adenomatous polyp 04/04/2024 History of carpal tunnel release (ICD-10 - Z98.890) Status post carpal tunnel release 01/11/2024 Overweight (BMI 25.0-29.9) (ICD-10 - E66.3) Encouraged balance nutrition and regular exercise. 01/25/2024 History of carpal tunnel release (ICD-10 - Z98.890) Continue to do well. No numbness tingling in the hands or fingertips 01/11/2024 Dietary counseling and surveillance (ICD-10 - Z71.3) Encouraged balance nutrition and regular exercise. 04/05/2024 Dietary counseling and surveillance (ICD-10 - [...] Colonic diverticulosi s Rectal tubular adenomatous polyp 12/30/2023 Other All of the diagnoses were explained. All [...] e-mail. Patient understood and agreed. For all nongastroenterolo gical symptoms/problems patient was advised to consult and seek help from primary care physician to assure more comprehensive and organized approach to patient care 01/11/2024 Other Body Mass Index : Care Instructions material was published, Preventing Falls: Care Instructions material was published 01/25/2024 Other Preventing Fall s: Care Instructions material was published, Body Mass Index: Care Instructions material was published 04/05/2024 Other Preventing Fall s: Care Instructions material was published, Body Mass [...] e-mail. Patient understood and agreed. For all nongastroenterolo gical symptoms/problems patient was advised to consult and seek help from primary care physician to assure more comprehensive and organized approach to patient care Reflux esophagitis Irregular Z-line Hiatal hernia 35/38 cm Gastric fundic polyps Antral gastritis Duodenitis Cecal hyperplastic polyp Cecal lipoma, subcentimeter Colonic diverticulosi s Rectal tubular adenomatous polyp 04/04/2024 Other Preventing Fall s: Care Instructions material was published, Body Mass Index: Care Instructions material was published Plan Of Treatment Pending Test Test Name Order Date TISSUE PATHOLOGY ([id number]) 09/07/2023 SURGICAL PATHOLOGY(PMCT-SR) 12/22/2023 Insurance Providers Payer Name Payer Address Payer Phone Subscriber Number Group Number Insured Name Patient Relationship to Insured Coverage Start Date Coverage End Date [facility] [address] [place], [place] [id number] Colon, Donnell Self - patient is the insured Medical (General) History Medical History History ICD Code Arthritis Headache Essential hypertension Dyslipidemia GERD Surgical History Surgery Date(Month/Year) Robotic incarcerated anterio r abdominal wall hernia repair Ventralight ST mesh (15 x 10 cm mesh, hernia defect 3 cm) Dr. Frankel 12/20/[address] Frankel 09/07/2023 bilateral trigger finger August 2022 carpal tunnel release Hospitalization History Reason Date(Month/Year) see above for reference
--- OUTSIDE RECORDS SUMMARY | 2024-12-29 06:55 | XMS_ITS | Patient Health Record ---
Author Organization [facility] Address [address] [place], [place] [address] Care Team Providers Care Dock Hand Name Role Phone Carlos Eaton Primary Care Provider Unavailabl e Allergies No Known Allergies Reason For Referral No Information Medications Medication SIG (Take, Route, Frequency, Duration) Notes Start Date End Date Status Gabapentin Active Nabumetone 750 MG as directed Orally Active Atenolol 25 MG 1 tablet Orally Once a day Active Baclofen 10 MG 2 tablets with food or milk Orally Once a day Active Aspirin 81 Active Omeprazole 40 MG 1 capsule 30 minutes before morning meal Orally Once a day Active Atorvastatin Calcium 10 MG 1 tablet Oral ly Once a day Active Problems Problem Type SNOMED Code ICD Code Onset Dates Problem Status W/U Status Risk Notes Problem [id number] Herniation of intervertebral disc of lumbar spine without radiculopathy (M51.26) Active confirmed Problem Low back pain (845721685) Low back pain (M54.5) 03/25/20 20 Active confirmed Problem Paresthesia (finding) (24020272) Paresthesia of skin (R20.2) 03/25/20 20 Active confirmed Problem Lumbar radiculitis (6104726030345730 4) Lumbar radiculitis (M54.16) 03/25/20 20 Active confirmed Plan Of Treatment No Information Insurance Providers Payer Name Payer Address Payer Phone Subscriber Number Group Number Insured Name Patient Relationship to Insured Coverage Start Date Coverage End Date [facility] O [address] [address] [place] [address] [phone] [id number] Donnell Lynne Self - patient is the insured Medical (General) History Medical History History ICD Code Heart problems Surgical History Surgery Date(Month/Year) Elianeel Tunnel Surgery
--- OUTSIDE RECORDS SUMMARY | 2024-12-29 06:56 | XMS_ITS ---
Author Organization [facility] Billing Info Address [address] [place] [address] Care Team Providers Care Industrial Pharmacist Name Role Phone Neil Rudolph Primary Care Provider Unavailab KEIRA Kim Unavailable [phone] KM FRANKEL Unavailable [phone] REASON FOR VISIT 6 MONTH FOLLOW UP Social History Tobacco Use: Social History Observation Description Date Details (start date - stop date) Former Smoker NA - NA Tobacco Status: Question Answer Notes Patient is a former smoker Encounters Encounter Location Date Provider Diagnosis [id number] [employer] [facility] [address] [facility] [address] [place], [place] [id number] 10/10/2024 KM FRANKEL Plan Of Treatment No Information Progress Notes * Martinez BONILLAanDOB:1955 ([age] yo M)Acc No.[id number]:10/10/2024 PROGRESS NOTE Patient:?Donnell BONILLA Provider:?KM FRANKEL MD :1955???Age:68 Y???Sex:Male Elan e:10/10/2024 ?N#:[id number] Address:[facility] [id number] Pcp:Neil Rudolph Subjective: * Chief Complaints: * ???1. 6 MONTH FOLLOW UP. * Medical History:?Arthritis, Headache, Essential hypertension, Dyslipidemia, GERD.? * Surgical History:?carpal chaz celestina release , bilateral trigger finger August 2022, excision of lipoma Dr. Frankel 09/07/2023, Robotic incarcerated anterior abdominal wall hernia repair Ventralight ST mesh (15 x 10 cm mesh, hernia defect 3 cm) Dr. Frankel 12/20/2023. * Hospitalization/Major Diagno stic Procedure:?see above for reference . * Family History:?Mother: grant thakur, diagnosed with Diabetes, Heart Attack.?Father: .? Denies family history of hypertension, bleeding disorder, dyslipidemia, liver or kidney disease. * Social History:?Alcohol Use? Patient?uses alcohol.?Tobacco Status?Patient is?a former smoker,?Quit in:?2006.? Objective: * Vitals:? Assessment: Plan: * Treatment: * Care Plan Details* * This progress note has not b een verified nor is it considered complete until locked and signed by the provider. Sign off status: Pending * Provider:?KM FRANKEL MD Date:?10/10 Generated for Sara huerta/Greta/eTumeshsmitting on:?12/29/2024 06:56 AM EDT
--- OUTSIDE RECORDS SUMMARY | 2024-12-29 06:56 | XMS_ITS ---
Author Organization [facility] Billing Info Address [address] [place] [id number] Care Team Providers Care Feeder Driver Name Role Phone Neil Rudolph Primary Care Provider Unavailab KEIRA Kim Unavailable [phone] KM FRANKEL Unavailable [phone] Allergies No Known Allergies REASON FOR VISIT f/u Robotic incarcerated anterior abdominal wall hernia repair Medications Medication SIG (Take, Route, Frequency, Duration) Notes Start Date End Date Status Acetaminophen 325 MG 1 tablet as needed Orally every 4 hrs Active Ranitidine 75 Active Suprep Bowel Prep Kit 17.5-3.13-1.6 GM/177ML 17.5-3.13-1.6 GM/177ML Orally As directed for 2 day(s) 03/15/2024 Not-Taking Aspercreme Lidocaine 4 % as directed Externally Active Suprep Bowel Prep Kit 17.5-3.13-1.6 GM/177ML 17.5-3.13-1.6 GM/177ML Orally As directed for 2 day(s) 12/30/2023 Not-Taking Bisoprolol Fumarate 5 MG 1 tablet Orally Once a day for 30 day(s) Active Baclofen 50 MCG/ML as directed Intrathecal Active Baby Aspirin Active Pantoprazole Sodium 20 MG 1 tablet Orall y Once a day for 30 day(s) Active Gabapentin 600 MG 1 tablet Orally Once a day for 30 day(s) Active Atorvastatin Calcium 20 MG 1 tablet Orally Once a day for 30 day(s) Active Social History Tobacco Use: Social History Observation Description Date Details (start date - stop date) Former Smoker NA - NA Tobacco Status: Question Answer Notes Patient is a former smoker Vital Signs Height 5'8 in 04/04/2024 Weight 168.4 lbs 04/04/2024 BMI 25.6 kg/m2 04/04/2024 Blood pressure systolic 127 mm Hg 04/04/20 Blood pressure diastolic 72 mm Hg 024 Temperature 98.2 degrees Fahrenheit 04/04/20 24 Heart Rate 69 /min 04/04/2024 Respiratory Rate 16 /min 04/04/2024 Encounters Encounter Location Date Provider Diagnosis [id number] [address] [facility] [address] [place], [place] [id number] 04/04/2024 KM FRANKEL Incarcerated umbilic al hernia K42.0 ; Essential hypertension I10 ; Dyslipidemia E78.5 ; Lipoma of anterior chest wall D17.1 ; Dietary counseling and surveillance Z71.3 ; Overweight (BMI 25.0-29.9) E66.3 ; Gastroesophageal reflux disease without esophagitis K21.9 ; Radiculopathy, lumbar region M54.16 ; Other chronic pain G89.29 ; Neck pain M54.2 and History of carpal tunnel release Z98.890 Assessments Encounter Date Diagnosis (ICD Code) Assessment Notes Treatment Notes Treatment Clinical Notes Section Notes 04/04/2024 Incarcerated umbilical hernia (ICD-10 - K42.0) 68-year-old male with undergone robotic incarcerated umbilical hernia repair with Ventralight ST mesh in November 2023. Patient reports that he is doing well. No recurrence of hernia on exam. Recommend continue activity as tolerated. Follow-up in 6 months for reevaluation. 04/04/2024 Essential hypertension (ICD-10 - I10) Continue bisoprolol 5 mg p.o. daily 04/04/2024 Dyslipidemia (ICD-10 - E78.5) Continue atorvastatin 20 mg p.o. daily 04/04/2024 Lipoma of anterior chest wall (ICD-10 - D17.1) Patient status post excision of lipoma. Incisions healed. There is no recurrence on exam. 04/04/2024 Dietary counseling and surveillance (ICD-10 - Z71.3) Encouraged balance nutrition and regular exercise. 04/04/2024 Overweight (BMI 25.0-29.9) (ICD-10 - E66.3) Encouraged balance nutrition and regular exercise. 04/04/2024 Gastroesophageal reflux disease without esophagitis (ICD-10 - K21.9) Patient to continue pantoprazole 20 g p.o. daily and Zantac 75 mg p.o. daily 04/04/2024 Radiculopathy, lumbar region (ICD-10 - M54.16) Patient to continue gabapentin 600 minutes p.o. daily 04/04/2024 Other chronic pain (ICD-10 - G89.29) Continue gabapentin 04/04/2024 Neck pain (ICD-10 - M54.2) Continue current treatment plan and gabapentin 04/04/2024 History of carpal tunnel release (ICD-10 - Z98.890) Status post carpal tunnel release 04/04/2024 Other Preventing Falls: Care Instructions material was published, Body Mass Index: Care Instructions material was published Plan Of Treatment Treatment Notes Assessment Notes Incarcerated umbilical hernia 68-year-ol d male with undergone robotic incarcerated umbilical hernia repair with Ventralight ST mesh in November 2023. Patient reports that he is doing well. No recurrence of hernia on exam. Recommend continue activity as tolerated. Follow-up in 6 months for reevaluation. Essential hypertension Continue bisoprol ol 5 mg p.o. daily Dyslipidemia Continue atorvastati n 20 mg p.o. daily Lipoma of anterior chest wall Patient st atus post excision of lipoma. Incisions healed. There is no recurrence on exam. Dietary counseling and surveillance Enco uraged balance nutrition and regular exercise. Overweight (BMI 25.0-29.9) Encouraged ba karolyn nutrition and regular exercise. Gastroesophageal reflux dise ase without esophagitis Patient to continue pantoprazole 20 g p.o. daily and Zantac 75 mg p.o. daily Radiculopathy, lumbar region Patient to continue gabapentin 600 minutes p.o. daily Other chronic pain Continue gabapentin Neck pain Continue current tita atment plan and gabapentin History of carpal tunnel release Status post carpal tunnel release Other Preventing Falls: Ca re Instructions material was published, Body Mass Index: Care Instructions material was published Next Appt Details Follow Up: 6 Months, Reason: Progress Notes * Gita BONILLAOB:1955 ([age] yo M)Acc No.[id number]:04/04/2024 PROGRESS NOTE Patient:?CHADDonnell Provider:?KM FRANKEL MD :1955???Age:68 Y???Sex:Male Elan e:04/04/2024 ?N#:[id number] [id number] Pcp:Neil Rudolph Subjective: * Chief Complaints: * ???f/u Robotic incarcerated anterior abdominal wall hernia repair * HPI: ???Depression Screening:?PHQ-2 (2015 Edition)?Little interest or pleasure in doing things??Not at all,?Feeling down, depressed, or hopeless??Not at all,?Total Score?0.?68-year-old male status post robotic incarcerated ventral hernia repair with Ventralight ST mesh on 12/20/2023. Patient's hernia defect was about 3 cm. Patient reports she is doing well. Denies incisional pain or anterior abdominal wall pain, nausea, vomiting, fevers, chills, diarrhea, constipation, hematemesis, melena, hematochezia, dysuria, hematuria, chest pain, shortness of breath, dyspnea, palpitations.? Patient denies any change in his home medications. Denies any constipation, or hematemesis. No abdominal wall pain or feeling a bulge. ???Influenza Like Symptom Screening:?Do you have flu-like symptoms??Flu-like symptoms?No,?In the past 3 weeks have you traveled outside the [place]No,?Have you had close contact with someone who has traveled outside the [place]??No.? * ROS:?GENERAL SURGERY:?Constitutional?Negative for: headaches, night sweats, recent weight gain/weight loss..?Eyes?Negative for: eye disease or injury, loss of vision, glaucoma..?Ears, Nose, Mouth, Throat?Negative for: swollen neck glands, facial fractures, mouth sores..?Cardiovascular?Negative for: heart murmur, high cholesterol, shortness of breath..?Respiratory?Negative for: persistent cough, wheezing..?Gastrointestinal?Negative for: loss of appetite, trouble swallowing, jaundice, nausea or vomiting..?Musculoskeletal?Negative for: difficulty walking, joint pain..?Integumentary (skin and/or breast)?Negative for: change in skin color, breast pain/discomfort. .?Neurological?Negative for: numbness, seizures/convulsions..?Psychiatric?Negative for: confusion, depression, anxiety.. Endocrine?Negative for: thyroid problems, heat or cold intolerance..?Hematologic/Lymphatic?Negative for: easy bruising, slow to heal..? * Medical History:?? * Surgical History:?carpal chaz celestina release bilateral trigger finger August 2022excision of lipoma Dr. Frankel 09/07/2023obotic incarcerated anterior abdominal wall hernia repair Ventralight ST mesh (15 x 10 cm mesh, hernia defect 3 cm) Dr. Frankel 12/20/2023EGD/Colonoscopy Dr. Cash 03/21/2024 * Hospitalization/Major Diagno stic Procedure:?see above for reference * Family History:?Mother: grant thakur, diagnosed with Diabetes, Heart Attack.?Father: .? Denies family history of hypertension, bleeding disorder, dyslipidemia, liver or kidney disease. * Social History:?Alcohol Use? Patient?uses alcohol.?Tobacco Status?Patient is?a former smoker,?Quit in:?2006.? * Medications:?TakingAcetamino phen 325 MG Tablet 1 tablet as needed Orally every 4 hrs Aspercreme Lidocaine 4 % Liquid as directed Externally Atorvastatin Calcium 20 MG Tablet 1 tablet Orally Once a day Baby Aspirin Baclofen 50 MCG/ML Solution Prefilled Syringe as directed Intrathecal Bisoprolol Fumarate 5 MG Tablet 1 tablet Orally Once a day Gabapentin 600 MG Tablet 1 tablet Orally Once a day Pantoprazole Sodium 20 MG Tablet Delayed Release 1 tablet Orally Once a day Ranitidine 75 Taking Acetaminophen 325 MG Tablet 1 tablet as needed Orally every 4 hrs Taking Aspercreme Lidocaine 4 % Liquid as directed Externally Taking Atorvastatin Calcium 20 MG Tablet 1 tablet Orally Once a day Taking Baby Aspirin Taking Baclofen 50 MCG/ML Solution Prefilled Syringe as directed Intrathecal Taking Bisoprolol Fumarate 5 MG Tablet 1 tablet Orally Once a day Taking Gabapentin 600 MG Tablet 1 tablet Orally Once a day Taking Pantoprazole Sodium 20 MG Tablet Delayed Release 1 tablet Orally Once a day Taking Ranitidine 75 Not-TakingSuprep Bowel Prep Kit 17.5-3.13-1.6 GM/177ML Solution 17.5-3.13-1.6 GM/177ML Orally As directed Suprep Bowel Prep Kit 17.5-3.13-1.6 GM/177ML Solution 17.5-3.13-1.6 GM/177ML Orally As directed Medication List reviewed and reconciled with the patientNot-Taking Suprep Bowel Prep Kit 17.5-3.13-1.6 GM/177ML Solution 17.5-3.13-1.6 GM/177ML Orally As directed Not-Taking Suprep Bowel Prep Kit 17.5-3.13-1.6 GM/177ML Solution 17.5-3.13-1.6 GM/177ML Orally As directed Medication List reviewed and reconciled with the patient * Allergies:?N.K.A.no[Allergie s Verified] Objective: * Vitals:?Ht: 5'8 , Ht-cm: 172 .72 cm, Wt: 168.4 lbs, Wt-k.38 kg, BMI:25.6, Weight Change: -3.6 lbs, Body Surface Area: 1.91, BP:127/72, Temp:98.2F, HR:69, Respiratory Rate:16. * Examination: ???GENERAL SURGERY: ?Constitutional:? no apparent distress, well developed, .?Head:? normocephalic, atraumatic.?Neck:? supple, normal ROM, no masses, thyroid normal.?Eyes:? PERRLA, sclera white, clear conjunctiva.?Ears, Nose, Mouth, Throat:?no lesions.?Respiratory:? clear B/L, nonlabored; no wheezing, rales or rhonchi.?Cardiovascular:? regular rate and rhythm, without murmurs, rubs or gallops.?Chest:? no deformities, nontender.?Gastrointestinal (Abdomen):?soft, nontender, nondistended, bowel sounds present in all four quadrants; no rebound, guarding or peritoneal signs; no organomegaly;?Left-sided incisions are all healed.? Hernia defect is completely closed there is? no recurrence.? There is no tenderness.?Ano-Rectal Exam:?Deferred.?Male Genitourinary:?Exam deferred.?Lymphatic:? no lymphodenopathy (cervical, axillary, inguinal); , non tender .?Musculoskeletal:? ROM normal.?Extremities:?palpable bilateral, femoral, popliteal, pedal pulse; , no edema, no cyanosis, clubbing or edema.?Skin:? warm, , dry, moist; left chest pectoralis tail or breast tail has a lipoma which measures about 3 to 4 cm.? It is freely mobile, nontender without any erythema.?Neurologic:? intact sensation and mentation, alert, oriented, to person, to place, to? time; Cranial nerves, 2-12 intact.?Psychiatric:? affect and demeanor normal, judgement and insight good, intact judgement.?Document/Image Review:? Report reviewed, Report reviewed, Report reviewed, Images reviewed, Patient chart reviewed, Labs reviewed.? Assessment: * Assessment: 1.?Incarcerated umbilical he rnia - K42.0 (Primary)?2.?Essential hypertension - I10?3.?Dyslipidemia - E78.5?4.?Lipoma of anterior chest wall - D17.1?5.?Dietary counseling and surveillance - Z71.3?6.?Overweight (BMI 25.0-29.9) - E66.3?7. Gastroesophageal reflux disease without esophagitis - K21.9?8.?Radiculopathy, lumbar region - M54.16?9.?Other chronic pain - G89.29?10.?Neck pain - M54.2?11.?History of carpal tunnel release - Z98.890? Plan: * Treatment: 2.?Essential hypertension? Notes: Continue bisoprolol 5 mg p.o. daily?? 3.?Dyslipidemia? Notes: Continue atorvastatin 20 mg p.o. daily?? 4.?Lipoma of anterior chest wall? Notes: Patient status post excision of lipoma. Incisions healed. There is no recurrence on exam.?? 5.?Dietary counseling and yoon rveillance? Notes: Encouraged balance nutrition and regular exercise.?? 6.?Overweight (BMI 25.0-29.9 )? Notes: Encouraged balance nutrition and regular exercise.?? 7.?Gastroesophageal reflux d isease without esophagitis? Notes: Patient to continue pantoprazole 20 g p.o. daily and Zantac 75 mg p.o. daily?? 8.?Radiculopathy, lumbar reg ion? Notes: Patient to continue gabapentin 600 minutes p.o. daily?? 9.?Other chronic pain? Notes: Continue gabapentin?? 10.?Neck pain? Notes: Continue current treatment plan and gabapentin?? 11.?History of carpal tunnel release? Notes: Status post carpal tunnel release?? 12.?Others? Notes: Preventing Falls: Care Instructions material was published, Body Mass Index: Care Instructions material was published?? * Procedure Codes:? * Preventive Medicine:? ??[place] PAF (Patient Assessment Form):?Fall Risk Assessment?Date Screening Completed:?04/04/2024,?Increased Fall Risk factors:?No fall risk factors,?History Falls in Past Year:?No falls in the past year.?Depression Screening?PHQ 2 Smart Form:?Negative for Depression.? ??Quality Measures:?Fall Risk Assessment:?Date of Screening Completed:?04/04/2024,?Increased Fall Risk Factors:?No fall risk factors,?History Falls in Past Year:?No falls in the past year.?High Blood Pressure screening and follow up:?Intervention Order?No,?Patient's?Pre-hypertensive or Hypertensive blood pressure reading documented, indicated follow-up documented.?Weight Assessment?Above Normal BMI Follow-Up?Dietary management education, guidance, and counseling.? * Follow Up:?6 Months * Care Plan Details* * Sign off status: Completed true * Provider:?KM FRANKEL MD Date:?04/04 Generated for Danieli deanna/Greta/eTransmitting on:?12/29/2024 06:55 AM EDT History and Physical Notes * HPI (History of Present Illness) Category Sub-Category Detail Notes Category Not es Depression Screening PHQ-2 (2015 Edition) Little interest or pleasure in doing things?: Not at all 68-year-old male status post robotic incarcerated ventral hernia repair with Ventralight ST mesh on 12/20/2023. Patient's hernia defect was about 3 cm. Patient reports she is doing well. Denies incisional pain or anterior abdominal wall pain, nausea, vomiting, fevers, chills, diarrhea, constipation, hematemesis, melena, hematochezia, dysuria, hematuria, chest pain, shortness of breath, dyspnea, palpitations. Patient denies any change in his home medications. Denies any constipation, or hematemesis. No abdominal wall pain or feeling a bulge. Feeling down, depressed, or hopeless?: N ot at all Total Score: 0 Influenza Like Symptom Screening Do you have flu-like symptoms? Flu-like symptoms: No In the past 3 weeks have you traveled ou tside the [place] No Have you had close contact with someone who has traveled outside the [place]?: No Examination Category Sub-Category Detail Notes Category Not es GENERAL SURGERY Document/Image Review: Report re viewed, Report reviewed, Report reviewed, Images reviewed, Patient chart reviewed, Labs reviewed Constitutional: no apparent distress , well developed, Neck: supple, normal ROM, no masses, thyroid normal Eyes: PERRLA, sclera white , clear conjunctiva Ears, Nose, Mouth, Throat: no lesions Respiratory: clear B/L, nonlabore d; no wheezing, rales or rhonchi Cardiovascular: regular rate and rhy thm, without murmurs, rubs or gallops Chest: no deformities, nont cuca Gastrointestinal (Abdomen): soft, nonten richard, nondistended, bowel sounds present in all four quadrants; no rebound, guarding or peritoneal signs; no organomegaly; Left-sided incisions are all healed. Hernia defect is completely closed there is no recurrence. There is no tenderness Female Genitourinary: Male Genitourinary: Exam deferred Lymphatic: no lymphodenopathy ( cervical, axillary, inguinal); , non tender Musculoskeletal: ROM normal Skin: warm, , dry, moist; left chest pectoralis tail or breast tail has a lipoma which measures about 3 to 4 cm. It is freely mobile, nontender without any erythema Neurologic: intact sensation and mentation, alert, oriented, to person, to place, to time; Cranial nerves, 2-12 intact Psychiatric: affect and demeanor normal, judgement and insight good, intact judgement Head: normocephalic, atrau matic Extremities: palpable bilateral, femoral, popliteal, pedal pulse; , no edema, no cyanosis, clubbing or edema Ano-Rectal Exam: Deferred
[2024-12-29 08:09] LABS: Digoxin 0.3 ng/mL (0.8-2.0)
== END 2024-12-29 06:54 | disposition home or self-care (01) ==
LOC: HO.LAB 06:53
PROVIDERS: PCP Internal Medicine; Visit Provider Internal Medicine
DX: M47.812 Spondylosis without myelopathy or radiculopathy, cervical region (principal); I48.0 Paroxysmal atrial fibrillation; M50.30 Other cervical disc degeneration, unspecified cervical region; M62.838 Other muscle spasm; M25.511 Pain in right shoulder; M25.512 Pain in left shoulder; G44.86 Cervicogenic headache
CPT/HCPCS: 36415; 80162; 99202

== ENCOUNTER 2024-12-29 08:16 | Outpatient (AMB) | payer MEDICARE, MEDICAID, SELFPAY ==
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
[2024-12-29 08:47] VITALS: BP 149/71; PULSE 53; O2SAT 98; BMI 27.3
== END 2024-12-29 09:28 | disposition home or self-care (01) ==
PROVIDERS: Visit Provider Nurse Practitioner Family
DX: M50.30 Other cervical disc degeneration, unspecified cervical region (principal); M47.812 Spondylosis without myelopathy or radiculopathy, cervical region; M62.838 Other muscle spasm; M25.511 Pain in right shoulder; M25.512 Pain in left shoulder; G44.86 Cervicogenic headache
CPT/HCPCS: 99204

== ENCOUNTER 2025-01-25 09:43 | Outpatient (AMB) | payer MEDICARE, MEDICAID, SELFPAY ==
[2025-01-25 10:02] VITALS: BP 100/68; PULSE 62; O2SAT 97; BMI 27.3
--- NOTE | 2025-01-25 10:02 | A.OFFPC_ITS ---
Vital Signs 01/25/25 10:02 Height 5 ft 6 in Weight 169 lb 6 oz BMI 27.3 BP 100/68 Blood Pressure Location Lt brachial Position Sitting Pulse 62 Pulse Source Pulse Oximeter Pulse Oximetry (%) 97 Oxygen Delivery Method Room Air Intake Visit Reasons: Surgery for bylatrial left eye English Composition Instructor Required: No Accompanied by: Self / Same As Patient Allergies No Known Allergies Allergy (Verified 01/25/25 10:32) Medication List - Last Reconciled 01/25/25 by Rachel Davidson PA-C apixaban (Eliquis) 5 mg PO BID 30 days atenolol 25 mg PO DAILY atorvastatin 40 mg PO DAILY digoxin 125 mcg PO DAILY docusate sodium (Colace) 100 mg PO DAILY PRN gabapentin 600 mg PO BEDTIME pantoprazole 40 mg PO DAILY tizanidine 4 mg PO BEDTIME PRN Tobacco use date assessed: 01/25/25 Fall risk assessment: No Falls in past year Last assessed Fall Risk: 01/25/25 Dental Screening Dental Screen Date: 01/25/25 Did you have a dental visit in the last 12 months?: Yes Did you have a dental problem in the last 6 months where you did not have access to dental care?: No Was dental information given to patient?: Patient has dentist HPI Surgery for bylatrial left eye HPI Details 69-year-old male with past medical histo ry of GERD, hypercholesterolemia, hypertension, paroxysmal AFib, abdominal aortic aneurysm and esophageal dysmotility last seen 11/2024 coming in for pre op visit. Patient is having bilateral cataract surgery with [facility] left eye 01/31/2025 and right eye 02/14/2025. Patient has had surgery and anesthesia in the past without complication or infection. He has no history of CVA, [place], DM or CHF. Hypertension: Well controlled with the use of atenolol blood pressure in the office 100/68 today. AFib: Rhythm control with digoxin, rate control with atenolol and on Eliquis for anticoagulation. Twice wekkly - and has been impriving on the medication [facility] Medical History Suprapubic tenderness Abdominal pain Hiatal hernia Constipation Esophageal dysmotility Achalasia GERD (gastroesophageal reflux disease) Cataract Hypercholesterolemia Abdominal aortic aneurysm (AAA) Paroxysmal A-fib Hypertension Cervical spondylosis Headache Degenerative disc disease, cervical Lipoma Surgical History History of carpal tunnel surgery History of hand surgery History of hernia surgery Family History Mother Heart problem Father No problems noted. Other Substance use disorder Social History Housing: Apartment Alcohol intake: never Patient Tobacco Use Status: Former Tobacco user e-Cigarette/Vaping Use: Never Used Second Hand Smoke Exposure: No service: No Current occupational status: retired Cognitive needs: Yes (cane) Hearing needs: No Vision needs: Yes (Glasses) Questionnaire PHQ-9 Over the last 2 weeks, how often have you been bothered by any of the following problems? 1. Little interest or pleasure in doing things: not at all 2. Feeling down, depressed, or hopeless: not at all 3. Trouble falling or staying asleep, or sleeping too much: not at all 4. Feeling tired or having little energy: not at all 5. Poor appetite or overeating: not at all 6. Feeling bad about yourself - or that you are a failure or have let yourself or your family down: not at all 7. Trouble concentrating on things, such as reading the newspaper or watching television: not at all 8. Moving or speaking so slowly that other people could have noticed. Or the opposite - being so fidgety or restless that you have been moving around a lot more than usual: not at all 9. Thoughts that you would be better off or of hurting yourself in some way: not at all Total score: 0 Depression Screening Interpretation: Negative Depression Screening Done: Yes Source: Developed by Drs. Rolf Eddy, Sumi Nettles, Ryan Padron and colleagues, with an educational avril from [employer]. Thrive Questionnaire Date Thrive assessed: 01/25/25 What is your living situation today?: I have a steady place to live Within the past 12 months, did the food you bought not last and you didn't have the money to get more?: Never true Within the past 12 months, did you worry whether your food would run out before you got money to buy more?: Never true Do you have trouble paying for medicines?: No Do you have trouble getting transportation to medical appointments?: No Do you have trouble paying your heating and electricity bill?: Yes Do you have trouble taking care of your child, family member or friend?: No Do you have trouble with day-to-day activities such as bathing, preparing meals, shopping, managing finances, etc.?: No Are you currently unemployed and looking for a job?: No Are you interested in more education?: No Please select the resources that you would like help with: Utilities THRIVE Score: 1 AUDIT C Alcohol Use Questionnaire (AUDIT-C) 1. How often do you have a drink containing alcohol?: Never Total Score: 0 MINOO-7 AMB Questionnaire MINOO-7 Date MINOO - 7 assessed: 01/25/25 Feeling nervous, anxious, or on edge: 0 = Not at all Not being able to stop or control worryin = Not at all Worrying too much about different things: 0 = Not at all Trouble relaxin = Not at all Being so restless that it is hard to sit still: 0 = Not at all Becoming easily annoyed or irritable: 0 = Not at all Feeling afraid as if something awful might happen: 0 = Not at all Total MINOO-7 score (0-4 normal; 5-9 mild; 10-14 moderate; 15-21 severe): 0 Source: Developed by Drs. Rolf Eddy, Sumi Nettles, Ryan Padron and colleagues, with an educational avril from [employer]. Review of Systems Const Denies body aches, Denies chills, Denies fever(s), Denies headache(s) and Denies poor appetite Eyes Reports no additional complaints ENT Denies dysphagia, Denies dizziness, Denies headache(s) and Denies odynophagia Card Denies chest pain, Denies syncope, Denies edema, Denies irregular heart rhythm, Denies lightheadedness and Denies dyspnea Resp Denies cough and Denies dyspnea GI Denies abdominal pain, Denies dysphagia, Denies nausea, Denies odynophagia and Denies vomiting Reports no additional complaints Musc Reports no additional complaints and Denies abnormal gait Skin/Breast Reports system reviewed and no additional complaints, except as documented Neuro Denies abnormal gait, Denies dizziness, Denies syncope and Denies headache(s) Psych Reports no additional complaints Physical exam (Primary Care) Vital Signs: Last Vital Signs Pulse 62 01/25/25 10:02 BP 100/68 01/25/25 10:02 Pulse Ox 97 01/25/25 10:02 Oxygen Delivery Method Room Air 01/25/25 10:02 BMI result Body Mass Index 27.3 Tobacco/Smoking Status: Tobacco use Status Tobacco use date assessed 01/25/25 01/25/25 10:08 Patient Tobacco Use Status Former Tobacco user 01/25/25 10:08 e-Cigarette/Vaping Use Never Used 01/25/25 10:08 PHQ-9: PHQ-9 Score PHQ-9: Total score 0 01/25/25 11:31 Depression Screening Interpretation: Negative Thrive Assessment: Date of Thrive Assessment Date Thrive assessed 01/25/25 01/25/25 10:08 Const General: cooperative, healthy appearing, comfortable and no acute distress Orientation/consciousness: patient oriented x3 HENMT Head: Yes normocephalic Ears: hearing grossly normal bilaterally General nose exam: Normal external nose present Eyes General: appearance normal, both eyes and all related structures Conjunctivae: conjunctivae normal Neck Neck: Yes full ROM and Yes no lymphadenopathy Resp Effort & Inspection: normal respiratory effort Auscultation: clear to auscultation bilaterally, no crackles, no rales, no rhonchi and no wheezes Cardio Rate: regular rate Rhythm: regular rhythm Skin General skin exam: no rashes or lesions noted Neuro General: patient oriented x3 Gait exam (Neuro): Normal gait present Extrem General: Yes normal to inspection, Yes full ROM and No edema Psych Affect: normal affect Attitude: cooperative Insight: Good insight present (Psych) Judgement: Good judgement present (Psych) Coding Level of Care Code Est Pt Level 3 (05082) Diagnoses Pre-op exam Z01.818 Assessment & Plan Assessment & Plan (1) Pre-op exam: Code(s): Z01.818 - Encounter for other preprocedural examination Category: Medical Plan: Regarding preop clearance, the patient is at moderate risk for proposed surgery due to age and comorbidities which are well managed at this time. Reviewed with the patient that no surgery is completely free of risk and that this examination is to assist the surgeon in reviewing informed consent. Discussed with patient he may continue all medications as prescribed up until the day of the procedure. As modern cataract surgeries rarely cause any bleeding, he is advised that he should continue on his Eliquis I will leave it up to the discretion of the software licensing executive performing the procedure if he is comfortable with patient being on Eliquis or not for his eye surgery. I did discuss with the patient if the surgeon would like to discontinue the Eliquis prior to surgery patient needs to reach out to the office as he will require cardiology clearance. EKG and blood work evaluated. No further workup needed at this time and may proceed with the contemplated procedure. Thank you very much for letting me participate in the care of this patient Plan This note was constructed using voice recognition software. While every effort has been made to ensure accuracy and electric dolly operator, still areas may have been included sometimes these areas may affect the content or meeting of the given symptoms. Total time spent caring for the patient today was 20 minutes. This includes time spent before the visit reviewing the chart, time spent during the visit, and time spent after the visit and documentation. Patient was informed and verbally consented to the use of an ambient scribe for clinic note documentation during this visit. Orders: Orders Complete Blood Count Auto Diff Today Z01.818 - Encounter for other preprocedural examination Comprehensive Met. Panel Today Z01.818 - Encounter for other preprocedural examination ECG 12 lead EKG Today Z01.818 - Encounter for other preprocedural examination Medications: New tizanidine 4 mg PO BID PRN 60 tabs 0RF muscle spasticity Refilled atorvastatin 40 mg PO DAILY 90 tabs 0RF Discontinued tizanidine Discontinued Reason: Patient no longer taking 4 mg PO BEDTIME PRN 30 caps 0RF muscle spasticity
== END 2025-01-25 10:58 | disposition home or self-care (01) ==
LOC: HO.HMCH 09:44
DX: Z01.818 Encounter for other preprocedural examination (principal)

== ENCOUNTER → 2025-01-25 09:43 | Outpatient (REF) | payer MEDICARE, MEDICAID, SELFPAY ==
--- NOTE | 2025-01-25 11:11 | ECG_ITS ---
Test Reason : PREOP Blood Pressure : */* mmHG Vent. Rate : 43 BPM Atrial Rate : 43 BPM P-R Int : 180 ms QRS Dur : 86 ms QT Int : 416 ms P-R-T Axes : 19 -14 2 degrees QTcB Int : 351 ms Marked sinus bradycardia Abnormal ECG No previous ECGs available Referred By: Rachel Davidson Electronically Signed By: DANIEL ZENG
[2025-01-25 11:26] LABS: MANUAL DIFF FLAG NO
[2025-01-25 12:01] LABS: Basophils Percent Auto 0.5 % (0-2); Eosinophils Absolute Auto 0.4 X10*3/uL (0.0-0.4); Eosinophils Percent Auto 6.3 % (0-4); Hematocrit 39.6 % (42.0-52.0); Hemoglobin 13.7 g/dl (14.0-18.0); Imm Gran Abs Auto 0.01 X10*3/uL (0.00-0.03); Imm Gran Pct Auto 0.2 % (0.0-0.4); Lymphocytes Absolute Auto 1.7 X10*3/uL (1.2-4.9); Mean Corpuscular HGB Conc 34.6 g/dl (31.0-36.0); Mean Corpuscular Hemoglobin 30.4 pg (27.0-33.0); Mean Corpuscular Volume 87.8 fL (80.0-98.0); Mean Platelet Volume 9.8 fL (9.4-12.4); Monocytes Absolute Auto 0.5 X10*3/uL (0.1-1.2); Monocytes Percent Auto 8.2 % (2-11); Neutrophils Absolute Auto 3.2 x10*3/uL (2.0-8.3); Neutrophils Percent Auto 54.8 % (45-73); Platelet Count 199 X10*3/uL (160-400); Red Blood Count 4.51 X10*6/uL (4.60-5.80); Red Cell Distribution Width 12.8 % (11.0-16.0); White Blood Count 5.8 X10*3/uL (4.8-10.8)
[2025-01-25 12:51] LABS: Alanine Aminotransferase 16 U/L (0-40); Albumin Level 4.1 g/dL (3.5-5.0); Alkaline Phosphatase 66 U/L (39-117); Anion Gap 7 (12-20); Aspartate Amino Transferase 18 U/L (5-37); Bilirubin Total 0.4 mg/dL (0.0-1.0); Blood Urea Nitrogen 15 mg/dL (9-16); Calcium 9.4 mg/dL (8.4-10.2); Carbon Dioxide 30 mmol/L (22-29); Chloride 109 mmol/L (96-108); Estimated Glomerular Filt Rate > 60; Glucose Random 112 mg/dL (60-115); Potassium 3.9 mmol/L (3.3-5.1); Sodium 142 mmol/L (135-145); Total Protein 6.3 g/dL (6.5-8.0)
== END ==
LOC: HO.CARD 09:43
DX: Z01.818 Encounter for other preprocedural examination (principal)
CPT/HCPCS: 36415; 80053; 85025; 93005; 99212

== ENCOUNTER → 2025-01-25 11:11 | Outpatient (BNV) | payer MEDICARE, MEDICAID, SELFPAY | PROVIDERS: Visit Provider Internal Medicine | DX: R00.1 Bradycardia, unspecified (principal) | CPT/HCPCS: 93010 ==

== ENCOUNTER 2025-02-07 14:05 | Outpatient (AMB) | payer OTHER, SELFPAY ==
[2025-02-07 14:10] VITALS: BP 120/70; PULSE 43; BMI 27.0
--- NOTE | 2025-02-07 14:10 | MHC.OFFVIS ---
Vital Signs 02/07/25 14:10 Height 5 ft 6 in Weight 167 lb 8.821 oz BMI 27.0 BP 120/70 Blood Pressure Location Lt brachial Position Sitting Pulse 43 L Intake Visit Reasons: 3m follow up/ holter Allergies No Known Allergies Allergy (Verified 01/25/25 10:32) Medication List - Last Reconciled 02/07/25 by Henry Friedman MD apixaban (Eliquis) 5 mg PO BID 30 days atenolol 25 mg PO DAILY atorvastatin 40 mg PO DAILY digoxin 125 mcg PO DAILY docusate sodium (Colace) 100 mg PO DAILY PRN gabapentin 600 mg PO BEDTIME pantoprazole 40 mg PO DAILY tizanidine 4 mg PO BID PRN HPI Comments Details: Donnell returns for follow-up. Recently seen in consultation regarding atrial fibrillation. He underwent HolterThat showed monitoring and that showed high burden of atrial fibrillation. Patient himself without any cardiac symptoms or previous cardiac history. He was on atenolol and after that we added digoxin. He states he feels well. No specific concerns. [facility] Medical History Suprapubic tenderness Abdominal pain Hiatal hernia Constipation Esophageal dysmotility Achalasia GERD (gastroesophageal reflux disease) Cataract Hypercholesterolemia Abdominal aortic aneurysm (AAA) Paroxysmal A-fib Hypertension Cervical spondylosis Headache Degenerative disc disease, cervical Lipoma Surgical History History of carpal tunnel surgery History of hand surgery History of hernia surgery Family History Mother Heart problem Father No problems noted. Other Substance use disorder Social History Housing: Apartment Alcohol intake: never Patient Tobacco Use Status: Former Tobacco user e-Cigarette/Vaping Use: Never Used Second Hand Smoke Exposure: No service: No Current occupational status: retired Cognitive needs: Yes (cane) Hearing needs: No Vision needs: Yes (Glasses) Review of Systems Const Denies weakness ENT Denies dizziness Card Denies chest pain, Denies chest pain with activity, Denies syncope, Denies rapid heart rate, Denies pedal edema, Denies edema, Denies leg edema, Denies lightheadedness, Denies palpitations, Denies dyspnea, Denies dyspnea on exertion and Denies orthopnea Resp Denies cough, Denies dyspnea and Denies dyspnea on exertion GI Denies hematochezia and Denies change in stool character Musc Denies abnormal gait, Denies muscle cramps, Denies muscle weakness, Denies numbness, Denies radiating pain into limb and Denies tingling Neuro Denies abnormal gait, Denies dizziness, Denies syncope, Denies numbness, Denies tingling and Denies weakness Endo Denies palpitations Physical Exam Vital Signs: Last Vital Signs Pulse 43 L 02/07/25 14:10 BP 120/70 02/07/25 14:10 BMI result Body Mass Index 27.0 Const General: comfortable and no acute distress Orientation/consciousness: patient oriented x3 HEENT Other: Unremarkable Head: Yes normal to inspection Neck Neck: Yes normal visual inspection Chest Chest palpation & inspection: normal inspection of the chest Resp Auscultation: clear to auscultation bilaterally Cardio Palpation: normal PMI Heart sounds: S1 normal heart sound present, S2 normal heart sound present, no gallops, no murmurs and no rubs GI Palpation (GI): Soft to palpation Back/Spine/Pelvis Other: unremarkable Skin General skin exam: no rashes or lesions noted Neuro General: patient oriented x3 Extrem General: Yes normal to inspection Psych Mental Status: mental status grossly normal Office Procedures EKG Details: EKG with sinus bradycardia at 43/Min; voltage criteria for LVH; [place] [id number], Complete Assessment & Plan Assessment & Plan (1) Paroxysmal A-fib: Code(s): I48.0 - Paroxysmal atrial fibrillation Category: Medical Plan Cardiac studies reviewed. In the echocardiogram, LVEF is 55-60%. Left atrium thought to be probably dilated. No significant valvular findings. In the initial Holter monitor, atrial fibrillation noted about 85% of the time. There is evidence of rapid ventricular response -about 6.6% of the time, rate > 100/Min. In the repeat monitor on digoxin, average rate was 83/Min. Only one 9% of the time, rate > 100/Min. However, in today's EKG, he is in sinus bradycardia. Overall, as he has got absolutely no symptoms we can stop the digoxin and just keep him on beta-blockers. Continue anticoagulation without changes. To contact us with any concerning symptoms. Otherwise, we will follow in 6 months time. Discussion Notes I discussed with the patient the current management plan for atrial fibrillation, including the discontinuation of digoxin due to a normal heart rhythm. We talked about continuing atenolol and the importance of the blood thinner to prevent strokes. We agreed on a follow-up plan in six months to evaluate symptom progression and treatment efficacy, with instructions to return earlier if symptoms like chest pain or dizziness occur. Consent was obtained for this plan. Patient was informed and verbally consented to the use of an ambient scribe for clinic note documentation during this visit. Total time spent including review of data, counseling, documentation, coordination of care-32 minutes. Medications: Discontinued digoxin Discontinued Reason: Doctor's Order 125 mcg PO DAILY 90 tabs 1RF Patient Instructions: - Stop taking digoxin. - Continue to take atenolol 25 mg daily. - Continue your blood thinner as prescribed. - Watch for symptoms like a racing heart, dizziness, or chest pains. Call if these happen. - Follow up in six months unless symptoms change. Coding Level of Care Code Est Pt Level 4 (97273) Complex EM visit Add On G2211 Diagnoses Paroxysmal A-fib I48.0 CPT Codes EKG - CPT: 49946-[id number], Complete ([id number])
== END 2025-02-07 14:41 | disposition home or self-care (01) ==
LOC: HO.HCS 14:05
PROVIDERS: PCP Internal Medicine; Visit Provider Internal Medicine
DX: I48.0 Paroxysmal atrial fibrillation (principal)
CPT/HCPCS: 93010; 99214; G2211

== ENCOUNTER → 2025-02-07 14:05 | Outpatient (BNVA) | payer OTHER, SELFPAY | PROVIDERS: PCP Internal Medicine; Visit Provider Internal Medicine | DX: I48.0 Paroxysmal atrial fibrillation (principal); R94.31 Abnormal electrocardiogram [ECG] [EKG]; R00.1 Bradycardia, unspecified | CPT/HCPCS: 93005; 99212 ==